=== PATIENT | female | born 1950 | race African-American/Black ===

== ENCOUNTER 2018-02-05 15:04 | Emergency (ER) | payer BC ==
[2018-02-05 15:27] VITALS: TEMP 98.6; BMI 24.1
--- NOTE | 2018-02-05 15:40 | PDOC ---
History of Present Illness - General Chief Complaint: Headache Stated Complaint: WEAKNESS Time Seen by Provider: 02/05/18 15:40 History Source: Patient Exam Limitations: No Limitations - History of Present Illness Initial Comments: 02/05/18 16:13 67 year old female with PMH discoid lupus presents to ED for headache since . She states her headache is located to her bilateral temples, feels "band- like", gradually progressed, non-radiating, currently 5/10. Admits to epigastric pain, nausea and one episode of vomiting today, denies hematemesis. Denies photophobia, phonophobia, fever, weakness, numbness, visual changes, chest pain, shortness of breath,diarrhea, blood in stools. She states she took Tylenol for the headache yesterday with no relief of symptoms. Past History - Past Medical History Allergies/Adverse Reactions: Allergies Allergy/AdvReac Type Severity Reaction Status Date / Time No Known Allergies Allergy Verified 02/05/18 15:26 Home Medications: Ambulatory Orders NK [No Known Home Medication] 02/05/18 COPD: No - Suicide/Smoking/Psychosocial Hx Smoking History: Current every day smoker Number of Cigarettes Smoked Daily: 20 Information on smoking cessation initiated: No Review of Systems - Review of Systems Able to Perform ROS?: Yes Comments:: 02/05/18 16:16 General: denies fever, chills, night sweats, generalized weakness. HEENT: denies sore throat, rhinorrhea, ear pain. Heart: admits to lightheadedness. denies chest pain, palpitations, syncope, lower extremity swelling. Respiratory: denies shortness of breath, cough, sputum production, hematemesis. Abdomen: admits to epigastric pain, nausea, vomiting. denies diarrhea, constipation, blood in stool. : denies dysuria, urinary frequency, hematuria. Musculoskeletal: denies joint pain, muscle pain, joint swelling. Neurological: admits to headache. denies dizziness, numbness, tingling. Skin: denies rash, laceration, abrasion. *Physical Exam - Vital Signs Last Vital Signs Temp Pulse Resp BP Pulse Ox 98.6 F 69 18 121/53 100 02/05/18 15:24 02/05/18 15:24 02/05/18 15:24 02/05/18 15:24 02/05/18 15:24 - Physical Exam Comments: 02/05/18 16:16 Appearance: comfortable. sitting up in bed. HEENT: head is normocephalic, atraumatic. EOMI. PERRLA. Neck: supple. Full ROM. Heart: regular rhythm. no murmurs, rubs or gallops. Lungs: clear to auscultation bilaterally. no crackles, rhonchi or wheezing. no stridor. Abdomen: soft, flat, nontender. normal bowel sounds. no rebound, guarding, masses. Back: no CVA tenderness. Extremities: Peripheral pulses intact. No lower extremity edema. Neurological: Alert. Oriented x3. CN 2-12 intact. 5/5 strength all extremities. Full sensation all extremities and bilateral face. Romberg negative. Gait normal. Finger to nose normal. Heart Score/ECG Review - ECG Impressions Comment:: 02/05/18 17:11 Inferior STEMI with reciprocal changes. ED Treatment Course - LABORATORY CBC & Chemistry Diagram: 02/05/18 17:00 02/05/18 17:00 Medical Decision Making - Medical Decision Making 02/05/18 17:02 67 year old female with PMH discoid lupus complaining of gradual onset frontal headache x3 days associated with epigastric pain and one episode of vomiting. Denies weakness, numbness, visual changes, chest pain, SOB. EKG - inferior CA with reciprocal changes. Pt will be transferred to [facility] for cardiac catheterization. I spoke with the patient and her daughter about the plan of care, and they agree to have her transferred. Aspirin, heparin and plavix given here. Pt is currently chest pain free, no shortness of breath, no palpitations. Vitals stable. *DC/Admit/Observation/Transfer Diagnosis at time of Disposition: Myocardial infarction Qualifiers: Myocardial infarction type: unspecified Involved coronary artery: other inferior wall coronary artery Qualified Code(s): I21.19 - ST elevation (STEMI) myocardial infarction involving other coronary artery of inferior wall - Discharge Dispostion Disposition: TRANSFER ACUTE CARE/OTHER HOSP Condition at time of disposition: Guarded Decision to Admit order: No - Referrals - Patient Instructions - Post Discharge Activity - Transfer to Acute Care Facility Receiving Facility: [facility] Accepting Physician:: Dr. Stewart
--- NOTE | 2018-02-05 16:31 | PDOC ---
Attending Attestation - Resident Resident Name: Gm Farryla - ED Attending Attestation I have performed the following: I have examined & evaluated the patient, The case was reviewed & discussed with the resident, I agree w/resident's findings & plan, Exceptions are as noted - HPI HPI: 02/05/18 16:29 67y F hx of discoid lupus presents with gradual constant, 5/10 headache, started on wednesday associated with mild epigastric pain. denies any chest pain , , back pain, sob, moreno, diaphorseis, n/v, diarrhea, melena, bpr. on exam pt is well appaering, in no distress card: rrr, no mrg pulm: cta b/l abd: soft nontender genreal: no acute distress, well appearing ddx: tensino headache, gastritis will obtain basic labs, ekg to screen for acs fluids/reglan for headache will aressess - Physicial Exam PE: 02/05/18 17:38 see above - Critical Care Time Total Critical Care Time: 35 Critical Care Statement: The care of this patient involved high complexity decision making to prevent further life threatening deterioration of the patient 's condition and/or to evaluate & treat vital organ system(s) failure or risk of failure. - Medical Decision Making 02/05/18 17:36 pts ekg noted for inferior STEMI with Q waves initiating STEMI transfer protocol to [facility] no active current chest pain, but does endorse mild epigastric discomfort [facility] transfer center called for transfer - discussed with Dr. Carter (card fellow) and dr Stewart (Interventional cardiology ) ekg reviewed by them - agree Inferior Stemi accepted gfor transfer will transfer with heparin bolus, given ASA and plavix 600mg 02/05/18 17:50 Was notified by [facility] that the acceptance was cancelled. I called back the transfer center to clarify - they said they wlil clarify and call me back 02/05/18 17:55 Discussed with transfer center - they are taking the transfer - will check to see if going to bed vs ED. 02/05/18 18:05 They found a bed for her. Departing with EMS Pt stlil well appearing in n odistress, denies chest pain. The patient was seen and examined to determine medical stability. The patient is MEDICALLY STABLE at this time. Labs, EKG, radiological studies were ordered to expedite the patient's care. I certify that I have discussed with the patient and/or his regional sales representative the following risks and benefits of the proposed transfer. Risks include worsening of patients condition during transport,auto accident, or permanent disability. Benefits include receiving specialized care not available at this facility. I certify that, based on the information available at this time, the medical benefits reasonably expected from the provision of appropriate medical treatment at the receiving facility outweigh the increased risk to the patient. I believe the patient/relative/guardian understands what I have explained and answered. The patient will be transferred to the service of Dr. Stewart at [facility] 02/07/18 07:49 Heart Score/ECG Review - ECG Impressions Comment:: 02/05/18 17:38 Normal sinus rhythm Rate of 69 BRITTNY in inferior leads with Q waves in III,aVF biphasic T waves in V5 and V6 no prior ekg for comparison
[2018-02-05] MEDS ORDERED: SODIUM CHLORIDE 1,000 ML IV ONE (16:34)
[2018-02-05] MEDS ORDERED: METOCLOPRAMIDE HCL INJECTION 10 MG/2 ML VIAL IVPUSH ONE (16:34)
[2018-02-05] MEDS ORDERED: METOCLOPRAMIDE HCL INJECTION 10 MG/2 ML VIAL ONE (16:51)
[2018-02-05 17:03] LABS: EOS % 0.1 % (0-4.5); HEMATOCRIT 35.2 % (32.4-45.2); HEMOGLOBIN 11.3 GM/dL (10.7-15.3); LYMPH % 11.6 % (8-40); MCH 24.5 pg (25.7-33.7); MCHC 32.1 g/dl (32.0-36.0); MEAN CELL VOLUME 76.3 fl (80-96); MEAN PLT VOLUME 9.5 fl (7.5-11.1); MONO % 11.6 % (3.8-10.2); NEUT % 76.7 % (42.8-82.8); PLATELET COUNT 199 K/MM3 (134-434); RBC 4.62 M/mm3 (3.60-5.2); RDW 17.9 % (11.6-15.6); WHITE BLOOD COUNT 7.9 K/mm3 (4.0-10.0)
[2018-02-05] MEDS ORDERED: ASPIRIN 81 MG CHEWABLE TABLETS PO ONE (17:07)
[2018-02-05] MEDS ORDERED: HEPARIN NA (PORCINE) 5,000 UNITS/ML 1ML VIAL IVPUSH PRN (17:13)
[2018-02-05] MEDS ORDERED: CLOPIDOGREL BISULFATE 300 MG TABLET PO ONE (17:16)
[2018-02-05] MEDS ORDERED: HEPARIN NA (PORCINE) 5,000 UNITS/ML 1ML VIAL ONE (17:23)
[2018-02-05] MEDS ORDERED: ASPIRIN 81 MG CHEWABLE TABLETS ONE (17:23)
[2018-02-05] MEDS ORDERED: CLOPIDOGREL BISULFATE 300 MG TABLET ONE (17:23)
[2018-02-05 17:38] VITALS: BP 144/74; PULSE 80
[2018-02-05 17:47] LABS: ALBUMIN 3.6 g/dl (3.4-5.0); ANION GAP 8 (8-16); BLOOD UREA NITROGEN 10 mg/dL (7-18); CALCIUM 9.5 mg/dL (8.5-10.1); CHLORIDE 103 mmol/L (98-107); CO2 29 mmol/L (21-32); GLUCOSE,RANDOM 112 mg/dL (74-106); POTASSIUM 3.9 mmol/L (3.5-5.1); SGOT/AST 120 U/L (15-37); SGPT/ALT 33 U/L (12-78); SODIUM 140 mmol/L (136-145)
[2018-02-05 17:48] LABS: ALK PHOS 87 U/L (45-117); BILIRUBIN,TOTAL 0.4 mg/dL (0.2-1.0); TOT PROT 7.5 g/dl (6.4-8.2)
[2018-02-05 17:54] LABS: LIPASE 562 U/L (73-393)
[2018-02-05 18:05] LABS: ANISOCYTOSIS 1+; PLATELET ESTIMATE ADEQUATE
--- NOTE | 2018-02-07 10:30 | EKG ---
Test Reason : Blood Pressure : / mmHG Vent. Rate : 069 BPM Atrial Rate : 069 BPM P-R Int : 126 ms QRS Dur : 090 ms QT Int : 416 ms P-R-T Axes : 062 028 077 degrees QTc Int : 445 ms SINUS RHYTHM WITH PREMATURE SUPRAVENTRICULAR COMPLEXES POSSIBLE LEFT ATRIAL ENLARGEMENT INFEROLATERAL INJURY PATTERN , POSSIBLY ACUTE ANTERIOR INFARCT , AGE UNDETERMINED T WAVE ABNORMALITY, CONSIDER LATERAL ISCHEMIA ACUTE ND / STEMI ABNORMAL ECG NO PREVIOUS ECGS AVAILABLE Confirmed by ARTURO JESUS MD ([id number]) on 02/07/2018 10:30:28 AM Referred By: Confirmed By:ARTURO JESUS MD
== END 2018-02-05 18:05 | disposition short-term general hospital (02) ==
LOC: JER 15:04
PROC: 3E0337Z Introduction of Electrolytic and Water Balance Substance into Peripheral Vein, Percutaneous Approach (ICD-10-PCS; principal; 2018-02-05)
PROC: 3E033GC Introduction of Other Therapeutic Substance into Peripheral Vein, Percutaneous Approach (ICD-10-PCS; 2018-02-05)
PROC: 3E033GC Introduction of Other Therapeutic Substance into Peripheral Vein, Percutaneous Approach (ICD-10-PCS; 2018-02-05)
DX: I21.19 ST elevation (STEMI) myocardial infarction involving other coronary artery of inferior wall (principal); F17.210 Nicotine dependence, cigarettes, uncomplicated
CPT/HCPCS: 36415; 71045-TC-FY; 80053; 82550; 82553; 83690; 84484; 85025; 93005; 93010; 99283-25; J1644; J7030

== ENCOUNTER 2018-02-18 13:36 | Inpatient (IN) | payer OTHER, BC ==
--- NOTE | 2018-02-18 14:04 | PDOC ---
History of Present Illness - General History Source: Patient - History of Present Illness Initial Comments: 02/18/18 15:12 67 year old female with PMH of recent SC (02/05)) presents to our ED c/o nausea , "queasiness" and decreased appetite. Patient states the symptoms have been present intermittently for 1 month but became increasingly severe over the last 3-4 days prompting her visit to the ED. Patient was evaluated by her mobility scooter repairer, -- today and instructed to come to the ED for further evaluation. Denies any recent weight loss. Notes 1/2 ppd > years. ROS positive for black tarry stools increased BM, patient has 3-4 bowel movement daily, normal is 1 BM. NKDA Surgical: s/p cardiac stent Social: former smoker, denies other toxic habits PMD: None - will refer to IM resident clinic As per EMR patient was evaluated in our ED on 02/05 at which time she was noted to have inferior STEMI. Patient transferred to [facility]. <Eva Du - Last Filed: 02/18/18 23:18> <Jesus Estrella - Last Filed: 02/20/18 16:34> - General Chief Complaint: Nausea/Vomiting Stated Complaint: WEAKNESS Time Seen by Provider: 02/18/18 14:00 Past History - Past Medical History Cardiac Disorders: Yes (SC stent) COPD: No - Surgical History Cardiac Surgery: Yes (stent 01/2018) - Suicide/Smoking/Psychosocial Hx Smoking History: Former smoker Have you smoked in the past 12 months: No Number of Cigarettes Smoked Daily: 20 Information on smoking cessation initiated: No Hx Alcohol Use: No Drug/Substance Use Hx: No <Eva Du - Last Filed: 02/18/18 23:18> <Jesus Estrella - Last Filed: 02/20/18 16:34> - Past Medical History Allergies/Adverse Reactions: Allergies Allergy/AdvReac Type Severity Reaction Status Date / Time No Known Allergies Allergy Verified 02/18/18 13:50 Home Medications: Ambulatory Orders Aspirin [ASA -] 81 mg PO DAILY 02/18/18 Atorvastatin Ca [Lipitor] 80 mg PO HS 02/18/18 Clopidogrel Bisulfate [Plavix -] 75 mg PO DAILY 02/18/18 Metoprolol Succinate [Toprol Xl] 25 mg PO DAILY 02/18/18 Review of Systems - Review of Systems Constitutional: Yes: Weakness. No: Chills, Fever Respiratory: No: Cough, Orthopnea Cardiac (ROS): Yes: Lightheadedness. No: Chest Pain, Palpitations, Syncope, Chest Tightness ABD/GI: Yes: Diarrhea, Nausea, Tarry Stools : No: Burning, Dysuria <FlorianMayra munroeica - Last Filed: 02/18/18 23:18> *Physical Exam - Vital Signs Last Vital Signs Temp Pulse Resp BP Pulse Ox 99.4 F 96 H 18 131/71 97 02/18/18 13:51 02/18/18 13:51 02/18/18 13:51 02/18/18 13:51 02/18/18 13:51 - Physical Exam General Appearance: Yes: Nourished, Thin Neck: positive: Trachea midline, Supple Respiratory/Chest: positive: Lungs Clear, Normal Breath Sounds Cardiovascular: positive: S1, S2 Gastrointestinal/Abdominal: negative: Tender, Soft, Guarding, Rebound Musculoskeletal: negative: CVA Tenderness (R), CVA Tenderness (L) Extremity: positive: Normal Capillary Refill, Normal Inspection Integumentary: positive: Dry, Warm Neurologic: positive: Fully Oriented, Alert <FlorianEva - Last Filed: 02/18/18 23:18> - Vital Signs Last Vital Signs Temp Pulse Resp BP Pulse Ox 98.9 F 88 20 144/72 95 02/20/18 14:00 02/20/18 14:00 02/20/18 14:00 02/20/18 14:00 02/20/18 09:00 <Jesus Estrella - Last Filed: 02/20/18 16:34> ED Treatment Course - LABORATORY CBC & Chemistry Diagram: 02/18/18 15:50 02/18/18 15:00 <FlorianEva - Last Filed: 02/18/18 23:18> - LABORATORY CBC & Chemistry Diagram: 02/20/18 06:05 02/19/18 06:00 - ADDITIONAL ORDERS Additional order review: 02/18/18 02/18/18 15:50 15:00 RBC 2.25 L Cancelled MCV 76.1 L Cancelled MCHC 32.0 Cancelled RDW 17.6 H Cancelled MPV 9.2 Cancelled Neutrophils % 79.5 Cancelled Lymphocytes % 8.4 D Cancelled Monocytes % 11.8 H Cancelled Eosinophils % 0.0 D Cancelled Basophils % 0.3 D Cancelled - Medications Given in the ED: ED Medications Discontinued Medications Generic Name Dose Route Start Last Admin Trade Name Nitesh PRN Reason Stop Dose Admin Acetaminophen 1,000 mg 02/18/18 18:02 02/18/18 19:30 Ofirmev Injection - IVPB 02/18/18 18:03 1,000 mg ONCE ONE Administration Bisacodyl 20 mg 02/20/18 15:00 02/20/18 15:15 Dulcolax - PO 02/20/18 15:01 20 mg ONCE ONE Administration Sodium Chloride 500 mls @ 500 mls/hr 02/18/18 14:42 02/18/18 15:07 Normal Saline - IV 02/18/18 15:41 500 mls/hr ASDIR STA Administration Ondansetron HCl 4 mg 02/18/18 14:42 02/18/18 15:08 Zofran Injection IVPB 02/18/18 14:43 Not Given ONCE ONE Pantoprazole Sodium 40 mg 02/18/18 15:29 02/18/18 16:31 Protonix Iv IVPUSH 02/18/18 15:30 40 mg ONCE ONE Administration <Jesus Estrella - Last Filed: 02/20/18 16:34> Medical Decision Making - Medical Decision Making 02/18/18 15:16 67 year old female presents w/nausea + black tarry stool. Recent h/o SC. Frontal diagnosis: repeat SC, PUD, gastritis, malignancy. Will obtain basic labs, Lipase. EKG. Reassess. 02/18/18 16:20 FOBT (+) Troponin 0.21 likely 2/2 to demand ischemia (previous Troponin 13 on 02/05) 02/18/18 17:41 Hb 5.1 Case d/w Dr. Pierce. Agrees w/POC. Requests CT Abdomen/Pelvis (can be done as inpatient) to r/o malignancy. Will see patient tomorrow in the a.m.; EGD pending Patient and patient's family counseled on plan of care; consented to transfusion. 2 units PRBC pending 02/18/18 18:46 Hospitalist service paged for admission. 02/18/18 18:47 02/18/18 18:54 Case d/w Dr. Navarro (hospitalist service) patient accepted for inpatient admission <Eva Du - Last Filed: 02/18/18 23:18> *DC/Admit/Observation/Transfer - Discharge Dispostion Decision to Admit order: Yes <Eva Du - Last Filed: 02/18/18 23:18> <Jesus Estrella - Last Filed: 02/20/18 16:34> Diagnosis at time of Disposition: Low hemoglobin GI bleed Qualifiers: GI bleed type/associated pathology: melena Qualified Code(s): K92.1 - Melena - Discharge Dispostion Condition at time of disposition: Fair
--- NOTE | 2018-02-18 14:38 | PDOC ---
Attending Attestation - Resident Resident Name: Eva Du - ED Attending Attestation I have performed the following: I have examined & evaluated the patient, The case was reviewed & discussed with the resident, I agree w/resident's findings & plan, Exceptions are as noted - HPI HPI: 02/18/18 14:38 67y F hx oCAD s/p stent 2 weeks ago (on plavix, asa), Lupus, presents with complaint of n/v. Pt was orginally asypmtomatic, went to her cardiology follow up w appointment and then suddenly felt dizzy and nauseus. Vomited 2x that was clear with food. Pt also endorses a couple episodes of dark stool as well. pt denies any sob, diaphoresis, cp, sob, back pain, abd pain, headache, dizziness. Pt states she currently feels better. +smoking history. GENERAL: The patient is awake, alert, and fully oriented, Nontoxic - in no acute distress. HEAD: Normocephalic, atraumatic. EYES: extraocular movements intact, sclera anicteric, conjunctiva clear. ENT: Normal voice, Moist mucous membranes. NECK: Normal range of motion, supple LUNGS: Breath sounds equal, clear to auscultation bilaterally. No wheezes, no rhonchi, no rales. HEART: Regular rate and rhythm, normal S1 and S2 without murmur, rub or gallop. ABDOMEN: Soft, nontender, No guarding, no rebound. . No CVA tenderness EXTREMITIES: Normal range of motion, no edema. NEUROLOGICAL: No facial assymetry, Normal speech, PSYCH: Normal mood, normal affect. SKIN: hypopigmented lesions on face ddx: gastroenteritis, acs, gib will ck labs, guaiac, ekg, trops fluids, zofran will reassess - Physicial Exam PE: 02/20/18 16:29 see abve - Critical Care Time Total Critical Care Time: 40 Critical Care Statement: The care of this patient involved high complexity decision making to prevent further life threatening deterioration of the patient 's condition and/or to evaluate & treat vital organ system(s) failure or risk of failure. - Medical Decision Making 02/18/18 18:36 pts labs noted for a 6pt drop in her hbg over the past 2 weeks with her dark stool (+guaiac) will admit for further management of GIB case dw GI wlil start protonix on th ept Heart Score/ECG Review - ECG Impressions Comment:: 02/18/18 15:09 Twelve-lead EKG was performed and reviewed by me. There is normal sinus rhythm with a rate of 100 Inverted T waves in the inferior leads and lateral leads When compared with prior EKG her ST elevation in the inferior leads have since resolved
[2018-02-18] MEDS ORDERED: SODIUM CHLORIDE 500 ML IV STA (14:42)
[2018-02-18] MEDS ORDERED: ONDANSETRON 4 MG/2 ML VIAL IVPB ONE (14:42)
[2018-02-18] MEDS ORDERED: ONDANSETRON 4 MG/2 ML VIAL ONE (14:56)
[2018-02-18] MEDS ORDERED: PANTOPRAZOLE SODIUM 40 MG VIAL IVPUSH ONE (15:29)
[2018-02-18 15:41] LABS: ALBUMIN 2.4 g/dl (3.4-5.0); ANION GAP 8 (8-16); BILIRUBIN,TOTAL 0.4 mg/dL (0.2-1.0); BLOOD UREA NITROGEN 19 mg/dL (7-18); CALCIUM 8.2 mg/dL (8.5-10.1); CHLORIDE 105 mmol/L (98-107); CO2 26 mmol/L (21-32); CREATININE 0.8 mg/dL (0.55-1.02); GLUCOSE,RANDOM 116 mg/dL (74-106); POTASSIUM 3.9 mmol/L (3.5-5.1); SGOT/AST 76 U/L (15-37); SGPT/ALT 67 U/L (12-78); SODIUM 139 mmol/L (136-145); TOT PROT 6.1 g/dl (6.4-8.2)
[2018-02-18 15:45] LABS: ALK PHOS 125 U/L (45-117)
[2018-02-18] MEDS ORDERED: PANTOPRAZOLE SODIUM 40 MG/100 ML BAG IVPB ONE ×2 (16:36→19:43)
[2018-02-18 17:05] LABS: BASO % 0.3 % (0-2.0); LYMPH % 8.4 % (8-40); MCH 24.4 pg (25.7-33.7); MEAN CELL VOLUME 76.1 fl (80-96); MEAN PLT VOLUME 9.2 fl (7.5-11.1); MONO % 11.8 % (3.8-10.2); NEUT % 79.5 % (42.8-82.8); PLATELET COUNT 308 K/MM3 (134-434); RBC 2.25 M/mm3 (3.60-5.2); RDW 17.6 % (11.6-15.6); WHITE BLOOD COUNT 8.2 K/mm3 (4.0-10.0)
[2018-02-18 17:22] LABS: HEMATOCRIT 17.1 % (32.4-45.2); HEMOGLOBIN 5.5 GM/dL (10.7-15.3)
[2018-02-18] MEDS ORDERED: ACETAMINOPHEN 1000 MG/100 ML VIAL (NON FORMULARY) IVPB ONE (18:02)
[2018-02-18 18:12] LABS: INR 1.23 (0.83-1.09); PROTHROMBIN TIME (PATIENT) 13.9 SEC (9.7-13.0)
[2018-02-18] MEDS: PANTOPRAZOLE SODIUM 80 MG in SODIUM CHLORIDE 100 ML IVPB SCH (19:30)
[2018-02-18] MEDS ORDERED: ACETAMINOPHEN INJECTION 100 ML IVPB ONE (19:43)
--- NOTE | 2018-02-18 20:59 | PN ---
Teaching Attending Note Name of Resident: Sorin Navarro ATTENDING PHYSICIAN STATEMENT I saw and evaluated the patient. I reviewed the resident's note and discussed the case with the resident. I agree with the resident's findings and plan as documented. SUBJECTIVE: Patient is a 67 year old woman with history of acute NM (stent 2 weeks ago) and SLE, who presents with complaint of nausea and vomiting. She went to her policy manager for follow up and then suddenly felt dizzy and nauseous. Vomited twice - clear with food. She had a couple episodes of dark stool as well. Denies any sob, diaphoresis, chestpain, abdominal pain or headache. She has been on Asprin and Plavix since her acute NM. Her hematocrit on February 05, 2018 was 35%, though she also had an MCV of 76 then. Denies use of NSAIDS or history of PUD. Got IV heparin 2 weeks ago as part of ACS management. Has avoided doctors most of her life - only seen a clinical support tech. Had left hand surgery. OBJECTIVE: Alert and in no acute distress Vital Signs Period Temp Pulse Resp BP Sys/Blankenship Pulse Ox Last 24 Hr 98.4 F-99.4 F 96-106 18-20 131-149/71-76 96-99 HEENT: No Jaundice, eye redness or discharge, PERRLA, EOMI. Normocephalic, atraumatic. Upper lip deformity with hyperpigmented lesions and vitiligo. External ears are normal and hearing is grossly intact. No nasal discharge. Neck: Supple, nontender. No palpable adenopathy or thyromegaly. No JVD Chest: Good effort. Clear to auscultation and percussion. Heart: Regular. No S3, rub or murmur Abdomen: Not distended, soft, nontender and no HSM. No rebound or guarding. Normoactive bowel sounds. Ext: Peripheral pulses intact. No leg edema. Skin: Warm and dry. No petechiae, rash or ecchymosis. Neuro: Alert. Apprehensive and withdrawn. Oriented x3. CN 2-12 grossly intact. Sensation grossly intact in all four extremities and DTR are symmetric. Current Medications Generic Name Dose Route Start Last Admin Trade Name Freq PRN Reason Stop Dose Admin Aspirin 81 mg 02/19/18 10:00 Asa - PO DAILY [facility] Atorvastatin Calcium 80 mg 02/18/18 22:00 Lipitor - PO HS SADAF Clopidogrel Bisulfate 75 mg 02/19/18 10:00 Plavix - PO DAILY SADAF Pantoprazole Sodium 80 mg/ 100 mls @ 10 mls/hr 02/18/18 18:00 02/18/18 19:30 Sodium Chloride IVPB 10 mls/hr Q10H SADAF Administration 8 MG/HR Metoprolol Succinate 25 mg 02/19/18 10:00 Toprol Xl - PO DAILY [facility] Home Medications Medication Instructions Recorded Aspirin [ASA -] 81 mg PO DAILY 02/18/18 Atorvastatin Ca [Lipitor] 80 mg PO HS 02/18/18 Clopidogrel Bisulfate [Plavix -] 75 mg PO DAILY 02/18/18 Metoprolol Succinate [Toprol Xl] 25 mg PO DAILY 02/18/18 Abnormal Lab Results 02/18/18 02/18/18 02/18/18 15:00 15:50 17:40 RBC 2.25 L Hgb 5.5 L* Hct 17.1 L D MCV 76.1 L MCH 24.4 L RDW 17.6 H Monocytes % 11.8 H Nucleated RBC % 1 H PT with INR 13.90 H INR 1.23 H BUN 19 H Random Glucose 116 H Calcium 8.2 L AST 76 H Alkaline Phosphatase 125 H D Troponin I 0.21 H Total Protein 6.1 L Albumin 2.4 L Crossmatch 02/18/18 17:40 RBC Hgb Hct MCV MCH RDW Monocytes % Nucleated RBC % PT with INR INR BUN Random Glucose Calcium AST Alkaline Phosphatase Troponin I Total Protein Albumin Crossmatch See Detail ASSESSMENT AND PLAN: 1. GI bleeding - Noted to have guaiac positive melena stool in the ER. Got IV protonix and zofran and now getting [address] scan of abd/pelvis pending. GI consulted. Location of bleeding unclear. Both EGD and colonoscopy will be revealing - microcytosis was present before recent plavix/aspirin therapy. 2. CAD/Recent Acute NM - Will continue Plavix and Aspirin pending Cardiology consult. Elevated troponin likely a residue from her recent NM. Will however trend her troponin and rule out a new acute NM. EKG shows t wave inversion in the inferior and lateral leads. 3. DVT prophylaxis - SCD, TEDs 4. Advance directives - Full code
--- NOTE | 2018-02-18 21:35 | HP ---
CHIEF COMPLAINT: dark stools PCP: Dr. Randolph litigation partner HISTORY OF PRESENT ILLNESS: Pt is a 67 yo F with PMH SLE and recent inf HI stent placed a Dusty on the of last month who presents to ED with complaint of dark stools since her procedure. Stools have increased from once daily to 3-4 BM per day. She also reports fatigue, decreased appetite, lightheadedness when standing from seated position or when bending over. Today, she went to see her litigation partner, who performed some lab work, which was pending when she came to ED. No other symptoms. ER course was notable for: (1) Hb 5.5, MCV 76, MCH 24, Trop 0.21, AST 76, ALP 125, FOBT pos (2) CXR, large heart, mild congestion (3) per sign-out, ED spoke with GI who reportedly recommended CTAP with and without contrast Recent Travel: PAST MEDICAL HISTORY: PAST SURGICAL HISTORY: Social History: Smoking: Alcohol: Drugs: Family History: Allergies No Known Allergies Allergy (Verified 02/18/18 13:50) HOME MEDICATIONS: Home Medications Medication Instructions Recorded Aspirin [ASA -] 81 mg PO DAILY 02/18/18 Atorvastatin Ca [Lipitor] 80 mg PO HS 02/18/18 Clopidogrel Bisulfate [Plavix -] 75 mg PO DAILY 02/18/18 Metoprolol Succinate [Toprol Xl] 25 mg PO DAILY 02/18/18 REVIEW OF SYSTEMS CONSTITUTIONAL: Absent: fever, chills, diaphoresis, generalized weakness, malaise, loss of appetite, weight change HEENT: Absent: rhinorrhea, nasal congestion, throat pain, throat swelling, difficulty swallowing, mouth swelling, ear pain, eye pain, visual changes CARDIOVASCULAR: Absent: chest pain, syncope, palpitations, irregular heart rate, lightheadedness , peripheral edema RESPIRATORY: Absent: cough, shortness of breath, dyspnea with exertion, orthopnea, wheezing, stridor, hemoptysis GASTROINTESTINAL: Absent: abdominal pain, abdominal distension, nausea, vomiting, diarrhea, constipation, melena, hematochezia GENITOURINARY: Absent: dysuria, frequency, urgency, hesitancy, hematuria, flank pain, genital pain MUSCULOSKELETAL: Absent: myalgia, arthralgia, joint swelling, back pain, neck pain SKIN: Absent: rash, itching, pallor HEMATOLOGIC/IMMUNOLOGIC: Absent: easy bleeding, easy bruising, lymphadenopathy, frequent infections ENDOCRINE: Absent: unexplained weight gain, unexplained weight loss, heat intolerance, cold intolerance NEUROLOGIC: Absent: headache, focal weakness or paresthesias, dizziness, unsteady gait, seizure, mental status changes, bladder or bowel incontinence PSYCHIATRIC: Absent: anxiety, depression, suicidal or homicidal ideation, hallucinations. PHYSICAL EXAMINATION Vital Signs - 24 hr 02/18/18 02/18/18 02/18/18 13:51 17:30 19:08 Temperature 99.4 F 98.4 F Pulse Rate 96 H Pulse Rate [ 106 H Apical] Respiratory 18 20 Rate Blood Pressure 131/71 Blood Pressure 149/76 [Left Arm] O2 Sat by Pulse 97 99 96 Oximetry (%) GENERAL: Awake, alert, and fully oriented, in no acute distress. HEAD: Normal with no signs of trauma. EYES: Pupils equal, round and reactive to light, extraocular movements intact, sclera anicteric, conjunctiva clear. No lid lag. EARS, NOSE, THROAT: Ears normal, nares patent, oropharynx clear without exudates. Moist mucous membranes. NECK: Normal range of motion, supple without lymphadenopathy, JVD, or masses. LUNGS: Breath sounds equal, clear to auscultation bilaterally. No wheezes, and no crackles. No accessory muscle use. HEART: Regular rate and rhythm, normal S1 and S2 without murmur, rub or gallop. ABDOMEN: Soft, nontender, not distended, normoactive bowel sounds, no guarding, no rebound, no masses. No hepatomegaly or splenomegaly. MUSCULOSKELETAL: Normal range of motion at all joints. No bony deformities or tenderness. No CVA tenderness. UPPER EXTREMITIES: 2+ pulses, warm, well-perfused. No cyanosis. No clubbing. No peripheral edema. LOWER EXTREMITIES: 2+ pulses, warm, well-perfused. No calf tenderness. No peripheral edema. NEUROLOGICAL: Cranial nerves II-XII intact. Normal speech. Normal gait. PSYCHIATRIC: Cooperative. Good eye contact. Appropriate mood and affect. SKIN: Warm, dry, normal turgor, no rashes or lesions noted, normal capillary refill. Laboratory Results - last 24 hr 02/18/18 02/18/18 02/18/18 14:25 15:00 15:00 WBC Cancelled Corrected WBC (auto) Cancelled RBC Cancelled Hgb Cancelled Hct Cancelled MCV Cancelled MCH Cancelled MCHC Cancelled RDW Cancelled Plt Count Cancelled MPV Cancelled Absolute Neuts (auto) Cancelled Absolute Lymphs (auto) Cancelled Absolute Monos (auto) Cancelled Absolute Eos (auto) Cancelled Absolute Basos (auto) Cancelled Add Manual Diff Cancelled Neutrophils % Cancelled Lymphocytes % Cancelled Monocytes % Cancelled Eosinophils % Cancelled Basophils % Cancelled Nucleated RBC % Cancelled Platelet Estimate Cancelled Platelet Comment Cancelled Normal RBC Morphology Cancelled PT with INR INR Sodium 139 Potassium 3.9 Chloride 105 Carbon Dioxide 26 Anion Gap 8 BUN 19 H Creatinine 0.8 Creat Clearance w eGFR > 60 Random Glucose 116 H Calcium 8.2 L Total Bilirubin 0.4 AST 76 H ALT 67 Alkaline Phosphatase 125 H D Creatine Kinase 47 Troponin I 0.21 H Total Protein 6.1 L Albumin 2.4 L Lipase Stool Occult Blood Positive Blood Type Antibody Screen Crossmatch 02/18/18 02/18/18 02/18/18 15:00 15:50 17:40 WBC 8.2 Corrected WBC (auto) RBC 2.25 L Hgb 5.5 L* Hct 17.1 L D MCV 76.1 L MCH 24.4 L MCHC 32.0 RDW 17.6 H Plt Count 308 D MPV 9.2 Absolute Neuts (auto) 6.5 Absolute Lymphs (auto) Absolute Monos (auto) Absolute Eos (auto) Absolute Basos (auto) Add Manual Diff Neutrophils % 79.5 Lymphocytes % 8.4 D Monocytes % 11.8 H Eosinophils % 0.0 D Basophils % 0.3 D Nucleated RBC % 1 H Platelet Estimate Platelet Comment Normal RBC Morphology PT with INR 13.90 H INR 1.23 H Sodium Potassium Chloride Carbon Dioxide Anion Gap BUN Creatinine Creat Clearance w eGFR Random Glucose Calcium Total Bilirubin AST ALT Alkaline Phosphatase Creatine Kinase Troponin I Total Protein Albumin Lipase 141 Stool Occult Blood Blood Type Antibody Screen Crossmatch 02/18/18 17:40 WBC Corrected WBC (auto) RBC Hgb Hct MCV MCH MCHC RDW Plt Count MPV Absolute Neuts (auto) Absolute Lymphs (auto) Absolute Monos (auto) Absolute Eos (auto) Absolute Basos (auto) Add Manual Diff Neutrophils % Lymphocytes % Monocytes % Eosinophils % Basophils % Nucleated RBC % Platelet Estimate Platelet Comment Normal RBC Morphology PT with INR INR Sodium Potassium Chloride Carbon Dioxide Anion Gap BUN Creatinine Creat Clearance w eGFR Random Glucose Calcium Total Bilirubin AST ALT Alkaline Phosphatase Creatine Kinase Troponin I Total Protein Albumin Lipase Stool Occult Blood Blood Type O POSITIVE Antibody Screen Negative Crossmatch See Detail ASSESSMENT/PLAN: Pt is a 67 yo F with PMH SLE and recent inf HI stent placed a Dusty on the of last month who presents to ED with complaint of dark stools since her procedure. Admitted for GIB. #GIB -likely exacerbated by AC following cardiac procedure -FOBT pos -Hb 6.8 -PRBCs -GI -NPO -Protonix #CAD -Recent cath with stenting with drug-eluting stent -EKG changes consistent with her recent inf wall HI -Cardio consult -continue ASA & Plavix in light of recent stent and risk of in-stent restenosis #PPx -SCDs -on plavix #Dispo -admit for GIB Sorin Navarro MD PGY-2 IM Visit type - Emergency Visit Emergency Visit: Yes ED Registration Date: 02/18/18 Care time: The patient presented to the Emergency Department on the above date and was hospitalized for further evaluation of their emergent condition. - New Patient This patient is new to me today: Yes Date on this admission: 02/26/18 - Critical Care Critical Care patient: No Hospitalist Screening - Colonoscopy Questionnaire Colonoscopy Questionnaire: Colonoscopy Questionnaire - Patient: 50 - 75 years old and never had a screening colonoscopy: Unknown History of colon or rectal polyps, or CA: Unknown History of IBD, Crohn's disease or UC: Unknown History of abdominal radiation therapy as a child: Unknown - Relative: 1 with colon or rectal CA, or polyps at age 60 or younger: Unknown Colon or rectal CA diagnosed at age 45 or younger: Unknown Multiple relatives with colon or rectal CA: Unknown - Outcome: Screening Result: Negative Screen
[2018-02-18] MEDS ORDERED: ATORVASTATIN CA 80 MG TABLET (FP) ONE (22:39)
[2018-02-18 22:51] VITALS: BMI 21.3
[2018-02-19] MEDS: ATORVASTATIN CA 80 MG TABLET (FP) PO SCH ×2 (00:07→21:34)
[2018-02-19] MEDS: PANTOPRAZOLE SODIUM 80 MG in SODIUM CHLORIDE 100 ML IVPB SCH ×4 (03:59→22:50)
[2018-02-19 07:56] LABS: BASO % 0.7 % (0-2.0); EOS % 0.3 % (0-4.5); HEMATOCRIT 18.7 % (32.4-45.2); LYMPH % 12.9 % (8-40); MCH 26.5 pg (25.7-33.7); MCHC 34.3 g/dl (32.0-36.0); MEAN CELL VOLUME 77.2 fl (80-96); MONO % 9.4 % (3.8-10.2); NEUT % 76.7 % (42.8-82.8); PLATELET COUNT 282 K/MM3 (134-434); RBC 2.43 M/mm3 (3.60-5.2); RDW 17.7 % (11.6-15.6); WHITE BLOOD COUNT 9.8 K/mm3 (4.0-10.0)
[2018-02-19 08:02] LABS: INR 1.22 (0.83-1.09); PROTHROMBIN TIME (PATIENT) 13.8 SEC (9.7-13.0)
[2018-02-19 08:03] LABS: ACTIVATED PTT 30.1 SECONDS (25.2-36.5)
[2018-02-19 08:07] LABS: CHLORIDE 109 mmol/L (98-107); POTASSIUM 4.2 mmol/L (3.5-5.1); SODIUM 143 mmol/L (136-145)
[2018-02-19 08:15] LABS: HEMOGLOBIN 6.4 GM/dL (10.7-15.3)
[2018-02-19 08:21] LABS: ALBUMIN 2.2 g/dl (3.4-5.0); ALK PHOS 110 U/L (45-117); ANION GAP 11 (8-16); BILIRUBIN,TOTAL 0.7 mg/dL (0.2-1.0); BLOOD UREA NITROGEN 15 mg/dL (7-18); CALCIUM 8.2 mg/dL (8.5-10.1); CO2 23 mmol/L (21-32); CREATININE 0.9 mg/dL (0.55-1.02); GLUCOSE,RANDOM 102 mg/dL (74-106); MAGNESIUM 2.1 mg/dL (1.8-2.4); PHOSPHOROUS 3.3 mg/dL (2.5-4.9); SGOT/AST 41 U/L (15-37); SGPT/ALT 51 U/L (12-78); TOT PROT 5.5 g/dl (6.4-8.2)
--- NOTE | 2018-02-19 09:05 | EKG ---
Test Reason : Blood Pressure : / mmHG Vent. Rate : 100 BPM Atrial Rate : 100 BPM P-R Int : 136 ms QRS Dur : 086 ms QT Int : 366 ms P-R-T Axes : 053 006 -50 degrees QTc Int : 472 ms SINUS RHYTHM WITH PREMATURE SUPRAVENTRICULAR COMPLEXES POSSIBLE LEFT ATRIAL ENLARGEMENT INFERIOR INFARCT (CITED ON OR BEFORE 05-FEB-2018) CANNOT RULE OUT ANTERIOR INFARCT (CITED ON OR BEFORE 05-FEB-2018) T WAVE ABNORMALITY, CONSIDER LATERAL ISCHEMIA ABNORMAL ECG WHEN COMPARED WITH ECG OF 05-FEB-2018 16:56, ST NO LONGER ELEVATED IN INFERIOR LEADS ST NO LONGER DEPRESSED IN LATERAL LEADS Confirmed by GAIL ARENAS, ANGELINA ([id number]) on 02/19/2018 9:04:41 AM Referred By: Confirmed By:ANGELINA REYNOLDS MD
[2018-02-19] MEDS ORDERED: PT OWN MED DRAWER 7, Y5N ONE ×2 (10:04→11:50)
--- NOTE | 2018-02-19 10:06 | PN ---
Physical Exam: SUBJECTIVE: Patient seen and examined Patient iscomfortable with no acute distress, No nausea or vomiting. OBJECTIVE: Vital Signs Temperature 99.2 F 02/19/18 05:33 Pulse Rate 98 H 02/19/18 05:33 Respiratory Rate 20 02/19/18 05:33 Blood Pressure 142/83 02/19/18 05:33 O2 Sat by Pulse Oximetry (%) 96 02/18/18 21:47 GENERAL: The patient is awake, alert, and fully oriented, in no acute distress. HEAD: Normal with no signs of trauma. EYES: PERRL, extraocular movements intact, sclera anicteric, conjunctiva clear. ENT: Ears normal, oropharynx clear without exudates, moist mucous membranes. NECK: Trachea midline, full range of motion, supple. LUNGS: Breath sounds equal, clear to auscultation bilaterally, no wheezes, no crackles, no accessory muscle use. HEART: Regular rate and rhythm, S1, S2 positive, LUCHO 2/6 , no rub or gallop. ABDOMEN: Soft, nontender, nondistended, normoactive bowel sounds, no guarding, no rebound, no hepatosplenomegaly, no masses. EXTREMITIES: 2+ pulses, warm, well-perfused, no edema. NEUROLOGICAL: Cranial nerves II through XII grossly intact. Normal speech, gait not observed. PSYCH: Normal mood, normal affect. SKIN: Warm, dry, normal turgor, no rashes or lesions noted CBCD WBC 9.8 K/mm3 (4.0-10.0) 02/19/18 06:00 RBC 2.43 M/mm3 (3.60-5.2) L 02/19/18 06:00 Hgb 6.4 GM/dL (10.7-15.3) L* 02/19/18 06:00 Hct 18.7 % (32.4-45.2) L 02/19/18 06:00 MCV 77.2 fl (80-96) L 02/19/18 06:00 MCHC 34.3 g/dl (32.0-36.0) 02/19/18 06:00 RDW 17.7 % (11.6-15.6) H 02/19/18 06:00 Plt Count 282 K/MM3 (134-434) 02/19/18 06:00 MPV 9.0 fl (7.5-11.1) 02/19/18 06:00 CMP Sodium 143 mmol/L (136-145) 02/19/18 06:00 Potassium 4.2 mmol/L (3.5-5.1) 02/19/18 06:00 Chloride 109 mmol/L (98-107) H 02/19/18 06:00 Carbon Dioxide 23 mmol/L (21-32) 02/19/18 06:00 Anion Gap 11 (8-16) 02/19/18 06:00 BUN 15 mg/dL (7-18) 02/19/18 06:00 Creatinine 0.9 mg/dL (0.55-1.02) 02/19/18 06:00 Creat Clearance w eGFR > 60 (>60) 02/19/18 06:00 Random Glucose 102 mg/dL (74-106) 02/19/18 06:00 Calcium 8.2 mg/dL (8.5-10.1) L 02/19/18 06:00 Total Bilirubin 0.7 mg/dL (0.2-1.0) 02/19/18 06:00 AST 41 U/L (15-37) H 02/19/18 06:00 ALT 51 U/L (12-78) 02/19/18 06:00 Alkaline Phosphatase 110 U/L (45-117) D 02/19/18 06:00 Total Protein 5.5 g/dl (6.4-8.2) L 02/19/18 06:00 Albumin 2.2 g/dl (3.4-5.0) L 02/19/18 06:00 CARDIAC ENZYMES Creatine Kinase 46 IU/L (26-192) 02/19/18 06:00 Troponin I 0.58 ng/ml (0.00-0.05) H 02/19/18 06:00 Current Medications Generic Name Dose Route Start Last Admin Trade Name Coleq PRN Reason Stop Dose Admin Aspirin 81 mg 02/19/18 10:00 Asa - PO DAILY [facility] Atorvastatin Calcium 80 mg 02/18/18 22:00 02/19/18 00:07 Lipitor - PO Not Given HS SADAF Clopidogrel Bisulfate 75 mg 02/19/18 10:00 Plavix - PO DAILY [facility] Pantoprazole Sodium 80 mg/ 100 mls @ 10 mls/hr 02/18/18 18:00 02/19/18 03:59 Sodium Chloride IVPB 10 mls/hr Q10H SADAF Administration 8 MG/HR Metoprolol Succinate 25 mg 02/19/18 10:00 Toprol Xl - PO DAILY [facility] Home Medications Medication Instructions Recorded Aspirin [ASA -] 81 mg PO DAILY 02/18/18 Atorvastatin Ca [Lipitor] 80 mg PO HS 02/18/18 Clopidogrel Bisulfate [Plavix -] 75 mg PO DAILY 02/18/18 Metoprolol Succinate [Toprol Xl] 25 mg PO DAILY 02/18/18 Echocardiogram 01/28/1919; ejection fraction 45%, basal septal and inferior wall akinesis, normal right ventricular size and systolic function, mild aortic and mitral regurgitation. a/p: The patient is a 67-year-old female with a history of discoid lupus, coronary artery disease, status post cardiac catheterization on 02/07/2018 with stenting of the distal right coronary artery. s/p PTCI/ coronary stenting 2 weeks ago. On ASA and Plavix x 2 weeks # aCUTE GI bleeding - Hypodermically stable. No stigmata of severe, ongoing GI bleeding at this time. Needs EGD and coloncopy to asses for intraluminal lesions unmasked by ASA and Plavix.KEEP HGB above 8 g/dl, PPI IVPB BID, Clear liquid diet. Cardiology consult APPRECIATED TO CONTINUE of ASA and Plavix. Prep for EGD and colonoscopy. # CAD/Recent Acute [place] - PER CARDIO TO CONTINUE PLAVIX/ASA DVT prophylaxis - SCD, TEDs Advance directives - Full code Visit type - Emergency Visit Emergency Visit: Yes ED Registration Date: 02/18/18 Care time: The patient presented to the Emergency Department on the above date and was hospitalized for further evaluation of their emergent condition. - New Patient This patient is new to me today: No - Critical Care Critical Care patient: No - Discharge Referral Referred to [facility] Med P.C.: No
[2018-02-19] MEDS: metoPROLOL SUCCINATE 25 MG TAB.SR.24H (FP) PO SCH (11:45)
[2018-02-19] MEDS: CLOPIDOGREL BISULFATE 75 MG TABLET (FP) PO SCH (11:45)
[2018-02-19] MEDS: ASPIRIN 81 MG CHEWABLE TABLETS PO SCH (11:46)
--- NOTE | 2018-02-19 11:56 | CON.CARD ---
Consult Consult Specialty:: cardiology Referred by:: Carlos Valle Reason for Consultation:: Coronary artery disease - History of Present Illness Chief Complaint: GI bleed - History Source History Provided By: Patient, Family Member Limitations to Obtaining History: No Limitations - Past Medical History Cardio/Vascular: Yes: CAD, HTN ...: No Rheumatology: Yes: Lupus - Alcohol/Substance Use Hx Alcohol Use: No - Smoking History Smoking history: Former smoker Have you smoked in the past 12 months: No Aproximately how many cigarettes per day: 20 If you are a former smoker, when did you quit?: 2 weeks Home Medications - Allergies Allergies/Adverse Reactions: Allergies Allergy/AdvReac Type Severity Reaction Status Date / Time No Known Allergies Allergy Verified 02/18/18 13:50 - Home Medications Home Medications: Ambulatory Orders Aspirin [ASA -] 81 mg PO DAILY 02/18/18 Atorvastatin Ca [Lipitor] 80 mg PO HS 02/18/18 Clopidogrel Bisulfate [Plavix -] 75 mg PO DAILY 02/18/18 Metoprolol Succinate [Toprol Xl] 25 mg PO DAILY 02/18/18 Review of Systems - Review of Systems Constitutional: reports: Lethargy, Malaise Eyes: reports: No Symptoms HENT: reports: No Symptoms Neck: reports: No Symptoms Cardiovascular: reports: No Symptoms Respiratory: reports: No Symptoms Gastrointestinal: reports: Abdominal Pain, Nausea, Rectal Bleeding Genitourinary: reports: No Symptoms Breasts: reports: No Symptoms Reported Musculoskeletal: reports: No Symptoms Integumentary: reports: No Symptoms Neurological: reports: No Symptoms Endocrine: reports: No Symptoms Hematology/Lymphatic: reports: No Symptoms Psychiatric: reports: No Symptoms Vital Signs: Vital Signs Temperature 99.2 F 02/19/18 05:33 Pulse Rate 98 H 02/19/18 05:33 Respiratory Rate 20 02/19/18 05:33 Blood Pressure 142/83 02/19/18 05:33 O2 Sat by Pulse Oximetry (%) 96 02/18/18 21:47 Constitutional: Yes: Well Nourished, No Distress, Calm Eyes: Yes: WNL, Conjunctiva Clear, EOM Intact HENT: Yes: WNL, Atraumatic, Normocephalic Neck: Yes: WNL, Supple, Trachea Midline Respiratory: Yes: WNL, Regular, CTA Bilaterally Gastrointestinal: Yes: Normal Bowel Sounds, Soft Renal/: Yes: WNL Cardiovascular: Yes: WNL, Regular Rate and Rhythm JVD: No Carotid Bruit: No PMI: Non-Displaced Heart Sounds: Yes: S1, S2 Murmur: Yes: Systolic Murmur, Grade 2 Musculoskeletal: Yes: WNL Extremities: Yes: WNL Edema: LLE: Trace, RLE: Trace Peripheral Pulses: 1+ Left Carotid, 1+ Right Carotid, 1+ Left Femoral, 1+ Right Femoral, 1+ Left Popliteal, 1+ Right Popliteal, 1+ Left Doralis Pedis, 1+ Right Dorsalis Pedis Integumentary: Yes: WNL Neurological: Yes: WNL, Alert, Oriented ...Motor Strength: WNL Psychiatric: Yes: WNL - Other Data Labs, Other Data: CBC, BMP 02/19/18 06:00 02/19/18 06:00 INR, PTT INR 1.22 (0.83-1.09) H 02/19/18 06:00 Troponin, BNP 02/18/18 02/19/18 15:00 06:00 Troponin I 0.21 H 0.58 H Troponin, BNP 02/18/18 02/19/18 15:00 06:00 Troponin I 0.21 H 0.58 H Assessment/Plan 67-year-old female presenting with a GI bleed. There is no evidence of ischemia nor acute coronary syndrome. No angina. The patient is status post recent inferior wall infarct. She received a drug- eluting stent to the distal right coronary artery (culprit lesion). His residual OM disease which needs to be addressed in the near future as possible. Would continue Plavix unless the bleed is completely uncontrollable, and life- threatening. May consider stopping the aspirin if needed. Transfuse packed RBCs. Try to keep hemoglobin around 10.0 as possible. The patient is stable from the cardiac standpoint. May proceed with GI workup as deemed necessary. Will follow with you. Admitting History and Physical - Admission Chief Complaint: Black stools History of Present Illness: The patient is a 67-year-old female with a history of discoid lupus, coronary artery disease, status post cardiac catheterization on 02/07/2018 with stenting of the distal right coronary artery, we have residual OM disease which was not touched. The plan was to return electively for OM stenting in near future. The patient is now presenting with nausea vomiting and black stools. She had discontinued the Plavix 2 days ago. X The patient denies chest pains and shortness of breath. No palpitations. She is supine in no apparent distress. Echocardiogram 01/28/1918; ejection fraction 45%, basal septal and inferior wall akinesis, normal right ventricular size and systolic function, mild aortic and mitral regurgitation. History Source: Patient, Family Member Limitations to Obtaining History: No Limitations - Past Medical History Cardiovascular: Yes: CAD, HTN, [place] ...: No Rheumatology: Yes: Lupus - Smoking History Smoking history: Former smoker Have you smoked in the past 12 months: No Aproximately how many cigarettes per day: 20 If you are a former smoker, when did you quit?: 2 weeks - Alcohol/Substance Use Hx Alcohol Use: No
[2018-02-19 15:42] LABS: HEMATOCRIT 24.3 % (32.4-45.2); HEMOGLOBIN 8.2 GM/dL (10.7-15.3); MCH 26.3 pg (25.7-33.7); MCHC 33.7 g/dl (32.0-36.0); MEAN CELL VOLUME 78.1 fl (80-96); MEAN PLT VOLUME 9.1 fl (7.5-11.1); PLATELET COUNT 316 K/MM3 (134-434); RBC 3.12 M/mm3 (3.60-5.2); RDW 17.4 % (11.6-15.6); WHITE BLOOD COUNT 8.9 K/mm3 (4.0-10.0)
--- NOTE | 2018-02-19 17:55 | CON.GI ---
Consult Consult Specialty:: GI Reason for Consultation:: symptomatic anemia - History of Present Illness History of Present Illness: Chart reviewed. Events and recent ED visits reviewed. AMI, s/p PTCI/ coronary stenting 2 weeks ago. On ASA and Plavix x 2 weeks. HGB in 01/26 was 11 g/d. 5.5 g/dl yesterday on presentation to ED. Never had EGD, or colonoscopy. HGB 8.5 g/dl after 2 u of PRBC. Per initial intake: Patient is a 67 year old woman with history of acute [place] ( stent 2 weeks ago) and SLE, who presents with complaint of nausea and vomiting. She went to her labeling associate for follow up and then suddenly felt dizzy and nauseous. Vomited twice - clear with food. She had a couple episodes of dark stool as well. Denies any sob, diaphoresis, chestpain, abdominal pain or headache. She has been on Asprin and Plavix since her acute [place]. Her hematocrit on February 05, 2018 was 35%, though she also had an MCV of 76 then. Denies use of NSAIDS or history of PUD. Got IV heparin 2 weeks ago as part of ACS management. Has avoided doctors most of her life - only seen a film composer. Had left hand surgery. - History Source History Provided By: Patient, Medical Record - Past Medical History Cardio/Vascular: Yes: CAD, HTN, [place] ...: No Rheumatology: Yes: Lupus - Alcohol/Substance Use Hx Alcohol Use: No - Smoking History Smoking history: Former smoker Have you smoked in the past 12 months: No Aproximately how many cigarettes per day: 20 If you are a former smoker, when did you quit?: 2 weeks Home Medications - Allergies Allergies/Adverse Reactions: Allergies Allergy/AdvReac Type Severity Reaction Status Date / Time No Known Allergies Allergy Verified 02/18/18 13:50 - Home Medications Home Medications: Ambulatory Orders Aspirin [ASA -] 81 mg PO DAILY 02/18/18 Atorvastatin Ca [Lipitor] 80 mg PO HS 02/18/18 Clopidogrel Bisulfate [Plavix -] 75 mg PO DAILY 02/18/18 Metoprolol Succinate [Toprol Xl] 25 mg PO DAILY 02/18/18 Family Disease History - Family Disease History Family History: Unremarkable Review of Systems Findings/Remarks: as per HPI, H&P, ED Physical Exam-GI Vital Signs: Vital Signs Temperature 98.6 F 02/19/18 15:28 Pulse Rate 92 H 02/19/18 15:28 Respiratory Rate 18 02/19/18 15:28 Blood Pressure 153/78 02/19/18 15:28 O2 Sat by Pulse Oximetry (%) 96 02/19/18 09:00 Constitutional: Yes: Well Nourished, No Distress, Calm Eyes: Yes: Conjunctiva Clear HENT: Yes: Other (scars) Neck: Yes: Supple Cardiovascular: Yes: Regular Rate and Rhythm Respiratory: Yes: Regular Gastrointestinal Inspection: No: Ascites, Distention ...Auscultate: Yes: Normoactive Bowel Sounds ...Palpate: Yes: Soft. No: Firm/Rigid, Guarding, Mass, Tenderness, Tenderness, Epigastium ...Rectal Exam: Yes: Guaiac Positive Neurological: Yes: Alert, Oriented Labs: CBC, BMP 02/19/18 14:50 02/19/18 06:00 INR, PTT INR 1.22 (0.83-1.09) H 02/19/18 06:00 Home Medication List Medication Instructions Recorded Confirmed Type Aspirin [ASA -] 81 mg PO DAILY 02/18/18 02/18/18 History Atorvastatin Ca [Lipitor] 80 mg PO HS 02/18/18 02/18/18 History Clopidogrel Bisulfate [Plavix -] 75 mg PO DAILY 02/18/18 02/18/18 History Metoprolol Succinate [Toprol Xl] 25 mg PO DAILY 02/18/18 02/18/18 History Active Medications Generic Name Dose Route Start Last Admin Trade Name Freq PRN Reason Stop Dose Admin Aspirin 81 mg 02/19/18 10:00 02/19/18 11:46 Asa - PO 81 mg DAILY SADAF Administration Atorvastatin Calcium 80 mg 02/18/18 22:00 02/19/18 00:07 Lipitor - PO Not Given HS SADAF Clopidogrel Bisulfate 75 mg 02/19/18 10:00 02/19/18 11:45 Plavix - PO 75 mg DAILY SADAF Administration Pantoprazole Sodium 80 mg/ 100 mls @ 10 mls/hr 02/18/18 18:00 02/19/18 14:00 Sodium Chloride IVPB Not Given Q10H SADAF 8 MG/HR Metoprolol Succinate 25 mg 02/19/18 10:00 02/19/18 11:45 Toprol Xl - PO 25 mg DAILY SADAF Administration Problem List - Problems (1) Acute blood loss anemia Code(s): D62 - ACUTE POSTHEMORRHAGIC ANEMIA (2) GI (gastrointestinal hemorrhage) Code(s): K92.2 - GASTROINTESTINAL HEMORRHAGE, UNSPECIFIED Assessment/Plan Hypodermically stable. No stigmata of severe, ongoing GI bleeding at this time. Needs EGD and coloncopy to asses for intraluminal lesions unmaseked by ASA and Plavix. Agree with keeping HGB above 8 g/dl, PPI IVPB BID, Clear liquid diet. Cardiology consult re continuation of ASA and Plavix. Prep for EGD and colonoscopy.
[2018-02-20] MEDS: PANTOPRAZOLE SODIUM 80 MG in SODIUM CHLORIDE 100 ML IVPB SCH ×3 (00:10→21:45)
[2018-02-20 06:53] LABS: BASO % 0.8 % (0-2.0); EOS % 0.6 % (0-4.5); HEMATOCRIT 25.9 % (32.4-45.2); LYMPH % 12.8 % (8-40); MCH 27.1 pg (25.7-33.7); MCHC 34.8 g/dl (32.0-36.0); MEAN CELL VOLUME 77.9 fl (80-96); MEAN PLT VOLUME 8.7 fl (7.5-11.1); MONO % 12.8 % (3.8-10.2); PLATELET COUNT 303 K/MM3 (134-434); RBC 3.33 M/mm3 (3.60-5.2); RDW 16.7 % (11.6-15.6); WHITE BLOOD COUNT 8.1 K/mm3 (4.0-10.0)
[2018-02-20 07:18] LABS: MAGNESIUM 2.1 mg/dL (1.8-2.4)
--- NOTE | 2018-02-20 08:50 | EKG ---
Test Reason : Blood Pressure : / mmHG Vent. Rate : 091 BPM Atrial Rate : 091 BPM P-R Int : 136 ms QRS Dur : 082 ms QT Int : 382 ms P-R-T Axes : 002 018 -41 degrees QTc Int : 469 ms NORMAL SINUS RHYTHM INFERIOR INFARCT (CITED ON OR BEFORE 05-FEB-2018) CANNOT RULE OUT ANTERIOR INFARCT (CITED ON OR BEFORE 05-FEB-2018) ABNORMAL ECG WHEN COMPARED WITH ECG OF 18-FEB-2018 14:37, PREMATURE SUPRAVENTRICULAR COMPLEXES ARE NO LONGER PRESENT NONSPECIFIC T WAVE ABNORMALITY HAS REPLACED INVERTED T WAVES IN LATERAL LEADS Confirmed by ANGELINA REYNOLDS MD ([id number]) on 02/20/2018 8:50:22 AM Referred By: Confirmed By:ANGELINA REYNOLDS MD
[2018-02-20] MEDS ORDERED: PT OWN MED DRAWER 7, Y5N ONE (09:37)
[2018-02-20] MEDS: metoPROLOL SUCCINATE 25 MG TAB.SR.24H (FP) PO SCH (10:39)
[2018-02-20] MEDS: ASPIRIN 81 MG CHEWABLE TABLETS PO SCH (10:39)
[2018-02-20] MEDS: CLOPIDOGREL BISULFATE 75 MG TABLET (FP) PO SCH (10:39)
--- NOTE | 2018-02-20 12:40 | PN ---
<Adryan Marquez - Last Filed: 02/20/18 16:38> Physical Exam: SUBJECTIVE: Patient seen and examined at bedside. no acute events overnight. tolerating clear liquid diet now and will Prepped later for EGD and colonoscopy for rebecca. Denies fever, cp, sob, n/v, urinary sxs OBJECTIVE: Vital Signs Period Temp Pulse Resp BP Sys/Blankenship Pulse Ox Last 24 Hr 98.6 F-99.4 F 92-100 17-18 146-155/74-98 95-97 General: AOx3 NAD HEENT: NCAT. No Jaundice, eye redness or discharge, PERRL, EOMI. Upper lip deformity with hyperpigmented lesions and vitiligo. Neck: Supple, nontender. Chest: Good effort. CTAB Heart: RRR S1 S2 no r/m/g Abdomen: NTND +BS. No rebound or guarding. Ext: Peripheral pulses intact. No leg edema. Skin: Warm and dry. No petechiae, ecchymosis. discoid lupus like rash/lesions on upper lip Neuro: CN 2-12 grossly intact. Sensation grossly intact in all four extremities Laboratory Results - last 24 hr 02/18/18 02/19/18 02/19/18 17:40 14:50 14:50 WBC 8.9 RBC 3.12 L Hgb 8.2 L Hct 24.3 L D MCV 78.1 L MCH 26.3 MCHC 33.7 RDW 17.4 H Plt Count 316 MPV 9.1 Absolute Neuts (auto) Neutrophils % Lymphocytes % Monocytes % Eosinophils % Basophils % Nucleated RBC % Phosphorus Magnesium Troponin I 0.55 H Blood Type O POSITIVE Antibody Screen Negative Crossmatch See Detail 02/20/18 02/20/18 06:05 06:05 WBC 8.1 RBC 3.33 L Hgb 9.0 L Hct 25.9 L MCV 77.9 L MCH 27.1 MCHC 34.8 RDW 16.7 H Plt Count 303 MPV 8.7 Absolute Neuts (auto) 5.9 Neutrophils % 73.0 Lymphocytes % 12.8 Monocytes % 12.8 H Eosinophils % 0.6 D Basophils % 0.8 Nucleated RBC % 0 Phosphorus 3.0 Magnesium 2.1 Troponin I Blood Type Antibody Screen Crossmatch Active Medications Generic Name Dose Route Start Last Admin Trade Name Freq PRN Reason Stop Dose Admin Aspirin 81 mg 02/19/18 10:00 02/20/18 10:39 Asa - PO 81 mg DAILY SADAF Administration Atorvastatin Calcium 80 mg 02/18/18 22:00 02/19/18 21:34 Lipitor - PO 80 mg HS [facility] Administration Bisacodyl 20 mg 02/20/18 15:00 Dulcolax - PO 02/20/18 15:01 ONCE ONE Clopidogrel Bisulfate 75 mg 02/19/18 10:00 02/20/18 10:39 Plavix - PO 75 mg DAILY [facility] Administration Pantoprazole Sodium 80 mg/ 100 mls @ 10 mls/hr 02/18/18 18:00 02/20/18 10:08 Sodium Chloride IVPB 10 mls/hr Q10H [facility] Administration 8 MG/HR Metoprolol Succinate 25 mg 02/19/18 10:00 02/20/18 10:39 Toprol Xl - PO 25 mg DAILY [facility] Administration Polyethylene Glycol/Electrolytes 4,000 ml 02/20/18 18:00 Golytely Solution - PO 02/20/18 18:01 ONCE ONE ASSESSMENT/PLAN: 67 yo F with PMH of discoid lupus, CAD, recent SD/inferior wall infarct s/p cardiac catheterization on 02/07/2018 with stenting of the distal RCA, on ASA and Plavix since her acute SD. p/w of n/v and dark stools. # Acute GI bleed - FOBT pos. Hgb 5.5....9.0 s/p s/p 3U pRBCs. Hypodermically stable. No stigmata of severe, ongoing GI bleeding at this time. Needs EGD and coloncopy to asses for intraluminal lesions unmasked by ASA and Plavix. -maintain HGB above 8 g/dl -PPI IVPB BID -Clear liquid diet. -NPO at midnight -Cardiology consult appreciated, continue aspirin and Plavix, including on the day of the procedure. -Prep for EGD and colonoscopy. # CAD/Recent Acute SD - s/p cardiac catheterization on 02/07/2018 with stenting of the distal RCA. Elevated troponin likely a residue from her recent SD. troponin trended w/ peak and dropped. -Cardiology consult appreciated, continue aspirin and Plavix, including in the day of the procedure. # FEN * F:no IVF * E: WNL * N :NPO at midnight # DVT ppx * SCD, TEDs # dispo * medsurg * Full code. * EGD and colonoscopy tomorrow Visit type - Emergency Visit Emergency Visit: Yes ED Registration Date: 02/18/18 Care time: The patient presented to the Emergency Department on the above date and was hospitalized for further evaluation of their emergent condition. - New Patient This patient is new to me today: Yes Date on this admission: 02/20/18 - Critical Care Critical Care patient: No <Tin Cantu - Last Filed: 02/20/18 16:54> Physical Exam: Patient is comfortable with no acute distress. Agree with the resident's note Vital Signs Temperature 98.9 F 02/20/18 14:00 Pulse Rate 88 02/20/18 14:00 Respiratory Rate 20 02/20/18 14:00 Blood Pressure 144/72 02/20/18 14:00 O2 Sat by Pulse Oximetry (%) 95 02/20/18 09:00 CBCD WBC 8.1 K/mm3 (4.0-10.0) 02/20/18 06:05 RBC 3.33 M/mm3 (3.60-5.2) L 02/20/18 06:05 Hgb 9.0 GM/dL (10.7-15.3) L 02/20/18 06:05 Hct 25.9 % (32.4-45.2) L 02/20/18 06:05 MCV 77.9 fl (80-96) L 02/20/18 06:05 MCHC 34.8 g/dl (32.0-36.0) 02/20/18 06:05 RDW 16.7 % (11.6-15.6) H 02/20/18 06:05 Plt Count 303 K/MM3 (134-434) 02/20/18 06:05 MPV 8.7 fl (7.5-11.1) 02/20/18 06:05 CMP Sodium 143 mmol/L (136-145) 02/19/18 06:00 Potassium 4.2 mmol/L (3.5-5.1) 02/19/18 06:00 Chloride 109 mmol/L (98-107) H 02/19/18 06:00 Carbon Dioxide 23 mmol/L (21-32) 02/19/18 06:00 Anion Gap 11 (8-16) 02/19/18 06:00 BUN 15 mg/dL (7-18) 02/19/18 06:00 Creatinine 0.9 mg/dL (0.55-1.02) 02/19/18 06:00 Creat Clearance w eGFR > 60 (>60) 02/19/18 06:00 Random Glucose 102 mg/dL (74-106) 02/19/18 06:00 Calcium 8.2 mg/dL (8.5-10.1) L 02/19/18 06:00 Total Bilirubin 0.7 mg/dL (0.2-1.0) 02/19/18 06:00 AST 41 U/L (15-37) H 02/19/18 06:00 ALT 51 U/L (12-78) 02/19/18 06:00 Alkaline Phosphatase 110 U/L (45-117) D 02/19/18 06:00 Total Protein 5.5 g/dl (6.4-8.2) L 02/19/18 06:00 Albumin 2.2 g/dl (3.4-5.0) L 02/19/18 06:00 CARDIAC ENZYMES Creatine Kinase 46 IU/L (26-192) 02/19/18 06:00 Troponin I 0.55 ng/ml (0.00-0.05) H 02/19/18 14:50 Current Medications Generic Name Dose Route Start Last Admin Trade Name Freq PRN Reason Stop Dose Admin Aspirin 81 mg 02/19/18 10:00 02/20/18 10:39 Asa - PO 81 mg DAILY S[facility] Administration Atorvastatin Calcium 80 mg 02/18/18 22:00 02/19/18 21:34 Lipitor - PO 80 mg HS [facility] Administration Clopidogrel Bisulfate 75 mg 02/19/18 10:00 02/20/18 10:39 Plavix - PO 75 mg DAILY [facility] Administration Pantoprazole Sodium 80 mg/ 100 mls @ 10 mls/hr 02/18/18 18:00 02/20/18 10:08 Sodium Chloride IVPB 10 mls/hr Q10H [facility]AD[facility] Administration 8 MG/HR Metoprolol Succinate 25 mg 02/19/18 10:00 02/20/18 10:39 Toprol Xl - PO 25 mg DAILY [facility] Administration Polyethylene Glycol/Electrolytes 4,000 ml 02/20/18 18:00 Golytely Solution - PO 02/20/18 18:01 ONCE ONE Home Medications Medication Instructions Recorded Aspirin [ASA -] 81 mg PO DAILY 02/18/18 Atorvastatin Ca [Lipitor] 80 mg PO HS 02/18/18 Clopidogrel Bisulfate [Plavix -] 75 mg PO DAILY 02/18/18 Metoprolol Succinate [Toprol Xl] 25 mg PO DAILY 02/18/18
--- NOTE | 2018-02-20 12:57 | PN ---
Progress Note, Physician Chief Complaint: GI bleed History of Present Illness: 67-year-old female with discoid lupus, coronary artery disease, status post recent inferior wall infarct, status post stenting of the distal right coronary artery, culprit lesion. Now admitted with GI bleed and severe anemia. GI workup planned for tomorrow. - Current Medication List Current Medications: Active Medications Aspirin (Asa -) 81 mg PO DAILY [facility] Last Admin: 02/20/18 10:39 Dose: 81 mg Atorvastatin Calcium (Lipitor -) 80 mg PO HS [facility] Last Admin: 02/19/18 21:34 Dose: 80 mg Bisacodyl (Dulcolax -) 20 mg PO ONCE ONE Stop: 02/20/18 15:01 Clopidogrel Bisulfate (Plavix -) 75 mg PO DAILY [facility] Last Admin: 02/20/18 10:39 Dose: 75 mg Pantoprazole Sodium 80 mg/ (Sodium Chloride) 100 mls @ 10 mls/hr IVPB Q10H [facility] Last Admin: 02/20/18 10:08 Dose: 10 mls/hr Metoprolol Succinate (Toprol Xl -) 25 mg PO DAILY [facility] Last Admin: 02/20/18 10:39 Dose: 25 mg Polyethylene Glycol/Electrolytes (Golytely Solution -) 4,000 ml PO ONCE ONE Stop: 02/20/18 18:01 - Objective Vital Signs: Vital Signs Temperature 99.2 F 02/20/18 06:00 Pulse Rate 96 H 02/20/18 10:00 Respiratory Rate 18 02/20/18 10:00 Blood Pressure 154/74 02/20/18 10:00 O2 Sat by Pulse Oximetry (%) 95 02/20/18 09:00 Constitutional: Yes: Well Nourished, No Distress, Calm Eyes: Yes: WNL, Conjunctiva Clear, EOM Intact HENT: Yes: WNL, Atraumatic, Normocephalic Neck: Yes: WNL, Supple, Trachea Midline Cardiovascular: Yes: WNL, Regular Rate and Rhythm, S1, S2 Respiratory: Yes: WNL, Regular, CTA Bilaterally Gastrointestinal: Yes: Normal Bowel Sounds, Soft ...Rectal Exam: Yes: Deferred Genitourinary: Yes: WNL Musculoskeletal: Yes: WNL Extremities: Yes: WNL Edema: No Peripheral Pulses: Left Radial: 2+, Right Radial: 2+, Left Doralis Pedis: 2+, Right Dorsalis Pedis: 2+, Left Femoral: 2+, Right Femoral: 2+ Integumentary: Yes: WNL Neurological: Yes: WNL, Alert, Oriented ...Motor Strength: WNL Psychiatric: Yes: WNL Labs: CBC, BMP 02/20/18 06:05 02/19/18 06:00 INR, PTT INR 1.22 (0.83-1.09) H 02/19/18 06:00 Assessment/Plan The patient has been stable from the cardiac standpoint. Denies chest pains and shortness of breath. The patient is medically optimized for upper/lower endoscopy. May proceed as planned. Please continue aspirin and Plavix, including in the day of the procedure. We'll follow with you.
[2018-02-20] MEDS ORDERED: BISACODYL 5 MG TABLET.DR (FP) PO ONE (15:00)
[2018-02-20] MEDS ORDERED: PEG 3350/NA SULF BICARB CL/KCL 4000 ML SOLN.RECON PO ONE (18:00)
[2018-02-20] MEDS: ATORVASTATIN CA 80 MG TABLET (FP) PO SCH (22:34)
[2018-02-21] MEDS: PANTOPRAZOLE SODIUM 80 MG in SODIUM CHLORIDE 100 ML IVPB SCH ×3 (05:16→20:28)
[2018-02-21 07:00] LABS: BASO % 1.1 % (0-2.0); EOS % 1.4 % (0-4.5); HEMATOCRIT 26.7 % (32.4-45.2); HEMOGLOBIN 9.3 GM/dL (10.7-15.3); MCH 26.9 pg (25.7-33.7); MCHC 34.7 g/dl (32.0-36.0); MEAN CELL VOLUME 77.6 fl (80-96); MEAN PLT VOLUME 8.8 fl (7.5-11.1); MONO % 14.2 % (3.8-10.2); NEUT % 71.3 % (42.8-82.8); PLATELET COUNT 322 K/MM3 (134-434); RBC 3.43 M/mm3 (3.60-5.2); RDW 17.4 % (11.6-15.6); WHITE BLOOD COUNT 7.1 K/mm3 (4.0-10.0)
--- NOTE | 2018-02-21 07:09 | PN ---
Physical Exam: SUBJECTIVE: Patient seen and examined at bedside. no acute events overnight. NPO overnight and prepped for EGD and colonoscopy for today. pt did not complete the prep but is pooping clear liquid yellow. Denies fever, cp, sob, n/v, urinary sxs OBJECTIVE: Vital Signs Period Temp Pulse Resp BP Sys/Blankenship Pulse Ox Last 24 Hr 98.0 F-99.0 F 88-96 18-20 134-154/72-84 95-97 General: AOx3 NAD HEENT: NCAT. No Jaundice, eye redness or discharge, PERRL, EOMI. Upper lip deformity with hyperpigmented lesions and vitiligo. Neck: Supple, nontender. Chest: Good effort. CTAB Heart: RRR S1 S2 no r/m/g Abdomen: NTND +BS. No rebound or guarding. Ext: Peripheral pulses intact. No leg edema. Skin: Warm and dry. No petechiae, ecchymosis. discoid lupus like rash/lesions on upper lip Neuro: CN 2-12 grossly intact. Sensation grossly intact in all four extremities Laboratory Results - last 24 hr 02/20/18 02/20/18 06:05 06:05 WBC 8.1 RBC 3.33 L Hgb 9.0 L Hct 25.9 L MCV 77.9 L MCH 27.1 MCHC 34.8 RDW 16.7 H Plt Count 303 MPV 8.7 Absolute Neuts (auto) 5.9 Neutrophils % 73.0 Lymphocytes % 12.8 Monocytes % 12.8 H Eosinophils % 0.6 D Basophils % 0.8 Nucleated RBC % 0 Phosphorus 3.0 Magnesium 2.1 Active Medications Generic Name Dose Route Start Last Admin Trade Name Freq PRN Reason Stop Dose Admin Aspirin 81 mg 02/19/18 10:00 02/20/18 10:39 Asa - PO 81 mg DAILY [facility]AD[facility] Administration Atorvastatin Calcium 80 mg 02/18/18 22:00 02/20/18 22:34 Lipitor - PO 80 mg HS [facility] Administration Clopidogrel Bisulfate 75 mg 02/19/18 10:00 02/20/18 10:39 Plavix - PO 75 mg DAILY [facility] Administration Pantoprazole Sodium 80 mg/ 100 mls @ 10 mls/hr 02/18/18 18:00 02/21/18 05:16 Sodium Chloride IVPB Not Given Q10H SADAF 8 MG/HR Metoprolol Succinate 25 mg 02/19/18 10:00 02/20/18 10:39 Toprol Xl - PO 25 mg DAILY [facility]AD[facility] Administration ASSESSMENT/PLAN: 67 yo F with PMH of discoid lupus, CAD, recent MT/inferior wall infarct s/p cardiac catheterization on 02/07/2018 with stenting of the distal RCA, on ASA and Plavix since her acute MT. p/w of n/v and dark stools. # Acute GI bleed - FOBT pos. Hgb 5.5....9.0...9.3 s/p 3U pRBCs. Hypodermically stable. No stigmata of severe, ongoing GI bleeding at this time. EGD and coloncopy today to asses for intraluminal lesions unmasked by ASA and Plavix. -maintain HGB above 8 g/dl -PPI IVPB BID -was NPO at midnight -Cardiology consult appreciated, continue aspirin and Plavix, including on the day of the procedure. -f/u EGD and colonoscopy. # CAD/Recent Acute MT - s/p cardiac catheterization on 02/07/2018 with stenting of the distal RCA. Elevated troponin likely a residue from her recent MT. troponin trended w/ peak and dropped. -Cardiology consult appreciated, continue aspirin and Plavix, including in the day of the procedure. # FEN * F:no IVF * E: WNL * N :NPO at midnight. resume PO after scope today # DVT ppx * SCD, TEDs # dispo * medsurg * Full code. * EGD and colonoscopy today Visit type - Emergency Visit Emergency Visit: Yes ED Registration Date: 02/18/18 Care time: The patient presented to the Emergency Department on the above date and was hospitalized for further evaluation of their emergent condition. - New Patient This patient is new to me today: Yes Date on this admission: 02/21/18 - Critical Care Critical Care patient: No
[2018-02-21 07:25] LABS: ALBUMIN 2.2 g/dl (3.4-5.0); ANION GAP 11 (8-16); BLOOD UREA NITROGEN 8 mg/dL (7-18); CALCIUM 8.4 mg/dL (8.5-10.1); CHLORIDE 107 mmol/L (98-107); CO2 24 mmol/L (21-32); GLUCOSE,RANDOM 91 mg/dL (74-106); POTASSIUM 3.4 mmol/L (3.5-5.1); SODIUM 142 mmol/L (136-145)
[2018-02-21 07:29] LABS: ALK PHOS 105 U/L (45-117); BILIRUBIN,TOTAL 0.7 mg/dL (0.2-1.0); CREATININE 0.8 mg/dL (0.55-1.02); SGOT/AST 36 U/L (15-37); SGPT/ALT 45 U/L (12-78); TOT PROT 5.3 g/dl (6.4-8.2)
[2018-02-21 07:40] LABS: INR 1.33 (0.83-1.09)
--- NOTE | 2018-02-21 08:53 | PN ---
Teaching Attending Note Name of Resident: Adryan Marquez ATTENDING PHYSICIAN STATEMENT I saw and evaluated the patient. I reviewed the resident's note and discussed the case with the resident. I agree with the resident's findings and plan as documented. SUBJECTIVE: OBJECTIVE: Vital Signs Temperature 99.4 F 02/21/18 06:00 Pulse Rate 89 02/21/18 06:00 Respiratory Rate 18 02/21/18 06:00 Blood Pressure 145/85 02/21/18 06:00 O2 Sat by Pulse Oximetry (%) 97 02/20/18 21:00 CBCD WBC 7.1 K/mm3 (4.0-10.0) 02/21/18 05:50 RBC 3.43 M/mm3 (3.60-5.2) L 02/21/18 05:50 Hgb 9.3 GM/dL (10.7-15.3) L 02/21/18 05:50 Hct 26.7 % (32.4-45.2) L 02/21/18 05:50 MCV 77.6 fl (80-96) L 02/21/18 05:50 MCHC 34.7 g/dl (32.0-36.0) 02/21/18 05:50 RDW 17.4 % (11.6-15.6) H 02/21/18 05:50 Plt Count 322 K/MM3 (134-434) 02/21/18 05:50 MPV 8.8 fl (7.5-11.1) 02/21/18 05:50 CMP Sodium 142 mmol/L (136-145) 02/21/18 05:50 Potassium 3.4 mmol/L (3.5-5.1) L 02/21/18 05:50 Chloride 107 mmol/L (98-107) 02/21/18 05:50 Carbon Dioxide 24 mmol/L (21-32) 02/21/18 05:50 Anion Gap 11 (8-16) 02/21/18 05:50 BUN 8 mg/dL (7-18) 02/21/18 05:50 Creatinine 0.8 mg/dL (0.55-1.02) 02/21/18 05:50 Creat Clearance w eGFR > 60 (>60) 02/21/18 05:50 Random Glucose 91 mg/dL (74-106) 02/21/18 05:50 Calcium 8.4 mg/dL (8.5-10.1) L 02/21/18 05:50 Total Bilirubin 0.7 mg/dL (0.2-1.0) 02/21/18 05:50 AST 36 U/L (15-37) 02/21/18 05:50 ALT 45 U/L (12-78) 02/21/18 05:50 Alkaline Phosphatase 105 U/L (45-117) 02/21/18 05:50 Total Protein 5.3 g/dl (6.4-8.2) L 02/21/18 05:50 Albumin 2.2 g/dl (3.4-5.0) L 02/21/18 05:50 CARDIAC ENZYMES Creatine Kinase 46 IU/L (26-192) 02/19/18 06:00 Troponin I 0.55 ng/ml (0.00-0.05) H 02/19/18 14:50 Current Medications Generic Name Dose Route Start Last Admin Trade Name Freq PRN Reason Stop Dose Admin Aspirin 81 mg 02/19/18 10:00 02/20/18 10:39 Asa - PO 81 mg DAILY [facility] Administration Atorvastatin Calcium 80 mg 02/18/18 22:00 02/20/18 22:34 Lipitor - PO 80 mg HS [facility] Administration Clopidogrel Bisulfate 75 mg 02/19/18 10:00 02/20/18 10:39 Plavix - PO 75 mg DAILY [facility] Administration Pantoprazole Sodium 80 mg/ 100 mls @ 10 mls/hr 02/18/18 18:00 02/21/18 05:16 Sodium Chloride IVPB Not Given Q10H SADAF 8 MG/HR Metoprolol Succinate 25 mg 02/19/18 10:00 02/20/18 10:39 Toprol Xl - PO 25 mg DAILY [facility] Administration Home Medications Medication Instructions Recorded Aspirin [ASA -] 81 mg PO DAILY 02/18/18 Atorvastatin Ca [Lipitor] 80 mg PO HS 02/18/18 Clopidogrel Bisulfate [Plavix -] 75 mg PO DAILY 02/18/18 Metoprolol Succinate [Toprol Xl] 25 mg PO DAILY 02/18/18 Echocardiogram 01/28/1919; ejection fraction 45%, basal septal and inferior wall akinesis, normal right ventricular size and systolic function, mild aortic and mitral regurgitation. ASSESSMENT AND PLAN: The patient is a 67-year-old female with a history of discoid lupus, coronary artery disease, status post cardiac catheterization on 02/07/2018 with stenting of the distal right coronary artery. s/p PTCI/ coronary stenting 2 weeks ago. On ASA and Plavix x 2 weeks # aCUTE GI bleeding - Hypodermically stable. patient is going for EGD and coloncopy to assess for intraluminal lesions unmasked by ASA and Plavix. KEEP HGB above 8 g/dl, PPI IVPB BID, Clear liquid diet. Cardiology consult APPRECIATED TO CONTINUE of ASA and Plavix. Prep for EGD and colonoscopy. # CAD/Recent Acute DE - PER CARDIO TO CONTINUE PLAVIX/ASA DVT prophylaxis - SCD, TEDs Advance directives - Full code follow the result of EGD and colonoscopy
[2018-02-21] MEDS ORDERED: KCL 10 MEQ IVPB 10 MEQ/100 ML INFUS.BAG IVPB SCH (10:45)
[2018-02-21] MEDS: ASPIRIN 81 MG CHEWABLE TABLETS PO SCH (10:48)
[2018-02-21] MEDS: metoPROLOL SUCCINATE 25 MG TAB.SR.24H (FP) PO SCH (10:48)
[2018-02-21] MEDS: CLOPIDOGREL BISULFATE 75 MG TABLET (FP) PO SCH (10:48)
--- NOTE | 2018-02-21 15:21 | PN ---
Progress Note, Physician Chief Complaint: Presently without complaints History of Present Illness: This is a 7-year-old female with discoid lupus, coronary artery disease, status post recent inferior wall infarct, status post stenting of the distal right coronary artery, culprit lesion. Now admitted with GI bleed and severe anemia. GI workup in progress. - Current Medication List Current Medications: Active Medications Aspirin (Asa -) 81 mg PO DAILY [facility] Last Admin: 02/21/18 10:48 Dose: 81 mg Atorvastatin Calcium (Lipitor -) 80 mg PO HS [facility] Last Admin: 02/20/18 22:34 Dose: 80 mg Clopidogrel Bisulfate (Plavix -) 75 mg PO DAILY [facility] Last Admin: 02/21/18 10:48 Dose: 75 mg Pantoprazole Sodium 80 mg/ (Sodium Chloride) 100 mls @ 10 mls/hr IVPB Q10H [facility] Last Admin: 02/21/18 05:16 Dose: Not Given Metoprolol Succinate (Toprol Xl -) 25 mg PO DAILY [facility] Last Admin: 02/21/18 10:48 Dose: 25 mg - Objective Vital Signs: Vital Signs Temperature 99.1 F 02/21/18 10:00 Pulse Rate 92 H 02/21/18 10:00 Respiratory Rate 18 02/21/18 10:00 Blood Pressure 144/92 02/21/18 10:00 O2 Sat by Pulse Oximetry (%) 93 L 02/21/18 09:00 Constitutional: Yes: Well Nourished Eyes: Yes: WNL HENT: Yes: WNL Neck: Yes: WNL Cardiovascular: Yes: Regular Rate and Rhythm (NL S1S2, No MRHG) Respiratory: Yes: CTA Bilaterally Gastrointestinal: Yes: Normal Bowel Sounds Extremities: Yes: WNL Edema: No Neurological: Yes: Alert, Oriented (Grossly nonfocal) Labs: CBC, BMP 02/21/18 05:50 02/21/18 05:50 INR, PTT INR 1.33 (0.83-1.09) H 02/21/18 05:50 Assessment/Plan 67 yo F with PMH of discoid lupus, CAD, recent PR/inferior wall infarct s/p cardiac catheterization on 02/07/2018 with stenting of the distal RCA, on ASA and Plavix since her acute PR. p/w of n/v and dark stools. GI workup is in progress. There are no direct cardiac contraindications to endoscopy and/or colonoscopy Continue current meds: Aspirin (Asa -) 81 mg PO DAILY [facility] Last Admin: 02/21/18 10:48 Dose: 81 mg Atorvastatin Calcium (Lipitor -) 80 mg PO HS [facility] Last Admin: 02/20/18 22:34 Dose: 80 mg Clopidogrel Bisulfate (Plavix -) 75 mg PO DAILY [facility] Last Admin: 02/21/18 10:48 Dose: 75 mg Pantoprazole Sodium 80 mg/ (Sodium Chloride) 100 mls @ 10 mls/hr IVPB Q10H [facility] Last Admin: 02/21/18 05:16 Dose: Not Given Metoprolol Succinate (Toprol Xl -) 25 mg PO DAILY [facility] Last Admin: 02/21/18 10:48 Dose: 25 mg Continue DAPT
[2018-02-21] MEDS ORDERED: ETOMIDATE 20 MG/10 ML AMPUL IVPUSH ONE (15:51)
[2018-02-21] MEDS ORDERED: PROPOFOL 20 ML ONE (15:51)
--- NOTE | 2018-02-21 16:49 | PROC ---
Endoscopy Procedure Endoscopy procedure completed. Please see scanned procedure report. 3 cm hiatal hernia and mild sigmoid diverticulosis otherwise normal EGD and colonoscopy. Resume previous diet. Small bowel capsule endoscopy to be scheduled before discharge.
[2018-02-21] MEDS: ATORVASTATIN CA 80 MG TABLET (FP) PO SCH (21:28)
[2018-02-21] MEDS ORDERED: POTASSIUM CHLORIDE TABS 20 MEQ TABLET.ER (FP) PO ONE (22:00)
[2018-02-22] MEDS: PANTOPRAZOLE SODIUM 80 MG in SODIUM CHLORIDE 100 ML IVPB SCH ×2 (04:30→06:39)
[2018-02-22 07:04] LABS: BASO % 0.8 % (0-2.0); EOS % 1.7 % (0-4.5); HEMATOCRIT 29.9 % (32.4-45.2); LYMPH % 18.8 % (8-40); MCH 26.4 pg (25.7-33.7); MCHC 33.6 g/dl (32.0-36.0); MEAN CELL VOLUME 78.8 fl (80-96); MEAN PLT VOLUME 8.5 fl (7.5-11.1); MONO % 14.7 % (3.8-10.2); PLATELET COUNT 347 K/MM3 (134-434); RBC 3.79 M/mm3 (3.60-5.2); RDW 18.2 % (11.6-15.6); WHITE BLOOD COUNT 6.6 K/mm3 (4.0-10.0)
[2018-02-22 07:36] LABS: CHLORIDE 110 mmol/L (98-107); POTASSIUM 4.7 mmol/L (3.5-5.1); SODIUM 144 mmol/L (136-145)
[2018-02-22 07:43] LABS: ALBUMIN 2.2 g/dl (3.4-5.0); ALK PHOS 109 U/L (45-117); ANION GAP 8 (8-16); BILIRUBIN,TOTAL 0.7 mg/dL (0.2-1.0); BLOOD UREA NITROGEN 8 mg/dL (7-18); CO2 26 mmol/L (21-32); CREATININE 1.1 mg/dL (0.55-1.02); GLUCOSE,RANDOM 89 mg/dL (74-106); SGOT/AST 30 U/L (15-37); SGPT/ALT 40 U/L (12-78); TOT PROT 5.6 g/dl (6.4-8.2)
[2018-02-22] MEDS: metoPROLOL SUCCINATE 25 MG TAB.SR.24H (FP) PO SCH (09:28)
[2018-02-22] MEDS: CLOPIDOGREL BISULFATE 75 MG TABLET (FP) PO SCH (09:28)
[2018-02-22] MEDS: ASPIRIN 81 MG CHEWABLE TABLETS PO SCH (09:28)
--- NOTE | 2018-02-22 11:34 | PN ---
Progress Note, Physician Chief Complaint: no complaints History of Present Illness: 67 yo F with PMH of discoid lupus, CAD, recent MA/inferior wall infarct s/p cardiac catheterization on 02/07/2018 with stenting of the distal RCA, on ASA and Plavix since her acute MA. p/w of n/v and dark stools. EGD showed hiatal hernia, colonoscopy showed sigmoid divertics. Awaiting outpatient capsule study. Getting IV PPI. - Current Medication List Current Medications: Active Medications Aspirin (Asa -) 81 mg PO DAILY [facility] Last Admin: 02/22/18 09:28 Dose: 81 mg Atorvastatin Calcium (Lipitor -) 80 mg PO HS [facility] Last Admin: 02/21/18 21:28 Dose: 80 mg Clopidogrel Bisulfate (Plavix -) 75 mg PO DAILY [facility] Last Admin: 02/22/18 09:28 Dose: 75 mg Pantoprazole Sodium 80 mg/ (Sodium Chloride) 100 mls @ 10 mls/hr IVPB Q10H [facility] Last Admin: 02/22/18 06:39 Dose: 10 mls/hr Metoprolol Succinate (Toprol Xl -) 25 mg PO DAILY [facility] Last Admin: 02/22/18 09:28 Dose: 25 mg - Objective Vital Signs: Vital Signs Temperature 98.8 F 02/22/18 10:00 Pulse Rate 94 H 02/22/18 10:00 Respiratory Rate 20 02/22/18 10:00 Blood Pressure 148/89 02/22/18 10:00 O2 Sat by Pulse Oximetry (%) 99 02/21/18 17:45 Constitutional: Yes: No Distress, Calm Eyes: Yes: Conjunctiva Clear, EOM Intact HENT: Yes: Normocephalic Neck: Yes: Trachea Midline Cardiovascular: Yes: Regular Rate and Rhythm Respiratory: Yes: CTA Bilaterally Gastrointestinal: Yes: Normal Bowel Sounds, Soft Musculoskeletal: Yes: WNL Edema: No Peripheral Pulses WNL: Yes Labs: CBC, BMP 02/22/18 06:15 02/22/18 06:15 INR, PTT INR 1.33 (0.83-1.09) H 02/21/18 05:50 Assessment/Plan 67 yo F with PMH of discoid lupus, CAD, recent MA/inferior wall infarct s/p cardiac catheterization on 02/07/2018 with stenting of the distal RCA, on ASA and Plavix since her acute MA. p/w of n/v and dark stools. Given recent MA and stenting, needs to continue DAPT despite bleeding Continue PPI. Outpatient capsule study. follow serial cbc. Appears stable. Start DC planning.
--- NOTE | 2018-02-22 13:28 | PN ---
Teaching Attending Note Name of Resident: Adryan Marquez ATTENDING PHYSICIAN STATEMENT I saw and evaluated the patient. I reviewed the resident's note and discussed the case with the resident. I agree with the resident's findings and plan as documented with exceptions below. SUBJECTIVE: patient seen and examined, no further dark stools, tolerating diet well, no complaints. OBJECTIVE: Vital Signs Period Temp Pulse Resp BP Sys/Blankenship Pulse Ox Last 24 Hr 98.7 F-100.0 F 83-95 16-24 133-151/66-89 94-100 Intake & Output 02/19/18 02/20/18 02/21/18 02/22/18 23:59 23:59 23:59 23:59 Intake Total 835 200 330 120 Balance 835 200 330 120 Weight 132 lb General: sitting in bed in no acute distress Chest:CTAB, no rales or wheezing Abdomen:Soft, NT throughout, ND, positive bowel sounds Extremities: no edema Home Medications Medication Instructions Recorded Aspirin [ASA -] 81 mg PO DAILY 02/18/18 Atorvastatin Ca [Lipitor] 80 mg PO HS 02/18/18 Clopidogrel Bisulfate [Plavix -] 75 mg PO DAILY 02/18/18 Metoprolol Succinate [Toprol Xl] 50 mg PO DAILY 02/22/18 Active Medications Aspirin (Asa -) [address] [facility] Last Admin: 02/22/18 09:28 Dose: 81 mg Atorvastatin Calcium (Lipitor -) 80 mg PO [facility] Last Admin: 02/21/18 21:28 Dose: 80 mg Clopidogrel Bisulfate (Plavix -) [address] [facility] Last Admin: 02/22/18 09:28 Dose: 75 mg Pantoprazole Sodium 80 mg/ (Sodium Chloride) 100 mls @ 10 mls/hr IVPB Q10H [facility] Last Admin: 02/22/18 06:39 Dose: 10 mls/hr Metoprolol Succinate (Toprol Xl -) [address] [facility] Last Admin: 02/22/18 09:28 Dose: 25 mg Echocardiogram 01/28/1918; ejection fraction 45%, basal septal and inferior wall akinesis, normal right ventricular size and systolic function, mild aortic and mitral regurgitation. ASSESSMENT AND PLAN: 67 yof with PMhx of CAD s/p recent inferior wall SC s/p RCA RAVINDRA PCI 02/07/2018, on ASA/plavix admitted with dark tarry stools and Hb 5.5. -Anemia, suspect from acute GI blood loss -CAD s/p recent inferior wall SC s/p RCA RAVINDRA PCI 02/07/2018 Plan hb stable. No gross evidence of bleed, tolerating diet. Protonix drip per GI. EGD/colonoscopy with 3 cm Discuss with GI for capsule endoscopy, inpatient vs outpatient. ASA/plavix, continue for now as tolerating with no gross hemodynamically concerning Bleed. Cotninue metoprolol/statin as tolerated. DVTPPX SCD TEDs Dispo pending GI input and further work up vs dc with outpatient CBC monitoring and GI follow up for capsule endoscopy. Plan discussed with patient in detail, all questions answered.
[2018-02-22 15:53] VITALS: BP 129/57; PULSE 92; TEMP 98.4
--- NOTE | 2018-02-22 17:43 | DS ---
Physical Exam: SUBJECTIVE: Patient seen and examined at bedside. no acute events overnight. tolerating PO well w/ good BMs. Denies fever, cp, sob, n/v, urinary sxs OBJECTIVE: Vital Signs Period Temp Pulse Resp BP Sys/Blankenship Pulse Ox Last 24 Hr 98.4 F-100.0 F 88-95 18-20 129-151/57-89 94-99 PHYSICAL EXAM General: AOx3 NAD HEENT: NCAT. No Jaundice, eye redness or discharge, PERRL, EOMI. Upper lip deformity with hyperpigmented lesions and vitiligo. Neck: Supple, nontender. Chest: Good effort. CTAB Heart: RRR S1 S2 no r/m/g Abdomen: NTND +BS. No rebound or guarding. Ext: Peripheral pulses intact. No leg edema. Skin: Warm and dry. No petechiae, ecchymosis. discoid lupus like rash/lesions on upper lip Neuro: CN 2-12 grossly intact. Sensation grossly intact in all four extremities LABS Laboratory Results - last 24 hr 02/18/18 02/22/18 02/22/18 17:40 06:15 06:15 WBC 6.6 RBC 3.79 Hgb 10.0 L Hct 29.9 L MCV 78.8 L MCH 26.4 MCHC 33.6 RDW 18.2 H Plt Count 347 MPV 8.5 Absolute Neuts (auto) 4.2 Neutrophils % 64.0 Lymphocytes % 18.8 D Monocytes % 14.7 H Eosinophils % 1.7 Basophils % 0.8 Nucleated RBC % 0 Sodium 144 Potassium 4.7 Chloride 110 H Carbon Dioxide 26 Anion Gap 8 BUN 8 Creatinine 1.1 H Creat Clearance w eGFR 49.39 Random Glucose 89 Calcium 9.0 Total Bilirubin 0.7 AST 30 ALT 40 Alkaline Phosphatase 109 Total Protein 5.6 L Albumin 2.2 L Blood Type O POSITIVE Antibody Screen Negative Crossmatch See Detail HOSPITAL COURSE: Date of Admission:02/18/18 Date of Discharge: 02/22/18 67 yo F with PMH of discoid lupus, CAD, recent CT/inferior wall infarct s/p cardiac catheterization on 02/07/2018 with RAVINDRA of the distal RCA, on ASA and Plavix since her acute CT. p/w of n/v and dark stools and Hgb 5.5 Admitted for Anemia (Hgb 5.5) w/ suspect from acute GI blood loss. Vitals were stable w/ mild tachy in the 90s. No obvious signs of active bleeding were noticed. Hgb 5.5 and FOBT positive. Pt recieved 2U pRBCs and anemia corrected to 9.3, GI was consulted and pt was put on Protonix drip and prepped for scope , which showed 3 cm hiatal hernia and mild sigmoid diverticulosis otherwise normal EGD and colonoscopy. Pt has been scheduled for f/u w/ Small bowel capsule endoscopy at [facility]. Pt H/H remained stable and pt tolerated PO. ASA/ plavix was not held in consideration of recent inferior wall CT w/ RAVINDRA of the distal RCA, cardio was consulted. Pt is hemodynamically stable and ready for discharge w/ f/u at [facility] for Small bowel capsule endoscopy. Minutes to complete discharge: 40 Discharge Summary Reason For Visit: TARRY STOOLS Current Active Problems Acute blood loss anemia (Acute) GI (gastrointestinal hemorrhage) (Acute) Low hemoglobin (Acute) Myocardial infarction (Chronic) Condition: Stable - Instructions Diet, Activity, Other Instructions: You were admitted for low blood levels and dark stools. We gave you blood transfusion and your blood levels corrected. You were seen by GI doctor and had a endoscopy and colonoscopy which were found to be relatively normal with no signs of bleeding. You still require further GI workup. We have scheduled you for a Small bowel capsule endoscopy which is a pill that will take pictures of your small intestines to look for any bleeding. Please follow up on March 09 at 1:30pm for a 3pm appointment at [address] [place] [address], Please call the office 1 week before your appointment to confirm. 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 in 1 week If you experience any fevers, chest pain, chills, abdominal pain, blood in your stools, nausea, vomiting, please call 911 or come to the ER Referrals: Vineet Lu MD [Staff Physician] - 1 Week Luciano Pierce MD [Staff Physician] - Forest Torres MD [Staff Physician] - 1 Week Disposition: HOME - Home Medications Comprehensive Discharge Medication List: Ambulatory Orders Aspirin [ASA -] 81 mg PO DAILY 02/18/18 Atorvastatin Ca [Lipitor] 80 mg PO HS 02/18/18 Clopidogrel Bisulfate [Plavix -] 75 mg PO DAILY 02/18/18 Metoprolol Succinate [Toprol Xl] 50 mg PO DAILY 02/22/18 This patient is new to me today: Yes Date on this admission: 02/22/18 Emergency Visit: Yes ED Registration Date: 02/18/18 Care time: The patient presented to the Emergency Department on the above date and was hospitalized for further evaluation of their emergent condition. Critical Care patient: No - Discharge Referral Referred to [facility] No
== END 2018-02-22 18:28 | disposition home or self-care (01) | DRG 377 ==
LOC: JER 13:36 → JERBED 18:53 → J5S 22:52
PROVIDERS: ADMIT Internal Medicine; ATTEND Hospitalist
PROC: 30233N1 Transfusion of Nonautologous Red Blood Cells into Peripheral Vein, Percutaneous Approach (ICD-10-PCS; 2018-02-18)
PROC: 0DJD8ZZ Inspection of Lower Intestinal Tract, Via Natural or Artificial Opening Endoscopic (ICD-10-PCS; 2018-02-21)
PROC: 0DJ08ZZ Inspection of Upper Intestinal Tract, Via Natural or Artificial Opening Endoscopic (ICD-10-PCS; principal; 2018-02-21 14:30)
DX: K92.2 Gastrointestinal hemorrhage, unspecified (principal); I21.19 ST elevation (STEMI) myocardial infarction involving other coronary artery of inferior wall; D62 Acute posthemorrhagic anemia; K44.9 Diaphragmatic hernia without obstruction or gangrene; K57.30 Diverticulosis of large intestine without perforation or abscess without bleeding; I25.10 Atherosclerotic heart disease of native coronary artery without angina pectoris; Z95.5 Presence of coronary angioplasty implant and graft; Z87.891 Personal history of nicotine dependence; I10 Essential (primary) hypertension; L93.0 Discoid lupus erythematosus
CPT/HCPCS: 36415; 36430; 71045-TC-FY; 80053; 82272; 82550; 83690; 83735; 84100; 84484; 85025; 85027; 85610; 85730; 86850; 86900; 86901; 86922; 93005; 93010; 97116-GP; 97161-GP; 99285-25; J0131; P9038; P9058

== ENCOUNTER 2018-03-25 22:50 | Inpatient (IN) | payer OTHER, BC ==
[2018-03-26 00:06] VITALS: BMI 21.9
[2018-03-26 00:18] LABS: BASO % 0.8 % (0-2.0); EOS % 0.6 % (0-4.5); LYMPH % 25.6 % (8-40); MCH 22.6 pg (25.7-33.7); MCHC 29.9 g/dl (32.0-36.0); MEAN CELL VOLUME 75.5 fl (80-96); MEAN PLT VOLUME 8.6 fl (7.5-11.1); MONO % 16.1 % (3.8-10.2); NEUT % 56.9 % (42.8-82.8); PLATELET COUNT 304 K/MM3 (134-434); RBC 2.47 M/mm3 (3.60-5.2); RDW 19.6 % (11.6-15.6); WHITE BLOOD COUNT 5.6 K/mm3 (4.0-10.0)
[2018-03-26 00:28] LABS: INR 1.1 (0.83-1.09); PROTHROMBIN TIME (PATIENT) 12.4 SEC (9.7-13.0)
[2018-03-26 00:36] LABS: ALBUMIN 3.2 g/dl (3.4-5.0); ALK PHOS 103 U/L (45-117); ANION GAP 7 MMOL/L (8-16); BILIRUBIN,TOTAL 0.3 mg/dL (0.2-1.0); BLOOD UREA NITROGEN 20 mg/dL (7-18); CALCIUM 8.7 mg/dL (8.5-10.1); CHLORIDE 109 mmol/L (98-107); CO2 28 mmol/L (21-32); CREATININE 1.2 mg/dL (0.55-1.3); GLUCOSE,RANDOM 141 mg/dL (74-106); POTASSIUM 4.4 mmol/L (3.5-5.1); SGOT/AST 28 U/L (15-37); SGPT/ALT 27 U/L (13-61); SODIUM 144 mmol/L (136-145); TOT PROT 6.8 g/dl (6.4-8.2)
[2018-03-26 00:38] LABS: HEMATOCRIT 18.7 % (32.4-45.2); HEMOGLOBIN 5.6 GM/dL (10.7-15.3)
--- NOTE | 2018-03-26 00:40 | PDOC ---
History of Present Illness <Edelmira Verdugo - Last Filed: 03/26/18 02:31> - General History Source: Patient Exam Limitations: No Limitations - History of Present Illness Initial Comments: 03/26/18 01:51 The patient is a 68-year-old female with past medical history significant for discoid lupus, CAD, recent Inferior STEMI with Q waves s/p cardiac catheterization on 02/07/2018 with RAVINDRA of the distal RCA, HTN, on ASA and Plavix since acute [place] presents to the emergency department with abnormal lab result. 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 Dr. Haney calls in for the patient, stating the patient had a Hg level of 5.0. Patients records indicated she was seen at the ED on 04/28, was admitted to the hospital for anemia (hgb 5.5) with the suspect from acute GI blood loss. During the stay, the patient received 2 units of RBCs and anemia was corrected to 9.3. The patient had an Endoscopy done which showed 3 cm hiatal hernia and mild sigmoid diverticulosis, otherwise normal EGD and colonoscopy. The patient was discharged on 02/22/18. The patient was scheduled for a small bowel capsule endoscopy. The patient reports following up having the test done with Dr. Luz Maria Jacobs, which came back positive but the patient is unsure of the details. The patient endorses symptoms of lightheadedness and generalized weakness for the past couple of weeks. Denies chest pain or palpitations. Denies any black or bloody stool. Allergies: NKA Social history: The patient is a former smoker. No past or present alcohol or illicit drug use reported. Surgical history: Cardiac Stents PCP: None Director Of Career Services: Dr. Haney. <Jesus Estrella - Last Filed: 03/26/18 02:53> - General Chief Complaint: Weakness Stated Complaint: PCP SENT/LIGHTHEADED Time Seen by Provider: 03/25/18 23:25 Past History <Edelmira Verdugo - Last Filed: 03/26/18 02:31> - Past Medical History Anemia: No Asthma: No Cancer: No Cardiac Disorders: Yes ([place] stent) CVA: No COPD: No CHF: No DVT: No Dementia: No Diabetes: No GI Disorders: No Disorders: No HTN: Yes Hypercholesterolemia: No Liver Disease: No Seizures: No Thyroid Disease: No - Surgical History Abdominal Surgery: No Appendectomy: No Cardiac Surgery: Yes (stent 01/2018) Cholecystectomy: No Lung Surgery: No Neurologic Surgery: No Orthopedic Surgery: No - Suicide/Smoking/Psychosocial Hx Smoking History: Former smoker Have you smoked in the past 12 months: No Number of Cigarettes Smoked Daily: 20 If you are a former smoker, when did you quit?: 2 weeks Information on smoking cessation initiated: No Hx Alcohol Use: No Drug/Substance Use Hx: No Substance Use Type: None <SameerJesus camacho - Last Filed: 03/26/18 02:53> - Past Medical History Allergies/Adverse Reactions: Allergies Allergy/AdvReac Type Severity Reaction Status Date / Time No Known Allergies Allergy Verified 03/26/18 00:13 Home Medications: Ambulatory Orders Aspirin [ASA -] 81 mg PO DAILY 02/18/18 Atorvastatin Ca [Lipitor] 80 mg PO HS 02/18/18 Clopidogrel Bisulfate [Plavix -] 75 mg PO DAILY 02/18/18 Metoprolol Succinate [Toprol Xl] 50 mg PO DAILY 02/22/18 Furosemide [Lasix -] 20 mg PO DAILY 03/26/18 Pantoprazole Sodium [Protonix -] 40 mg PO DAILY 03/26/18 Review of Systems - Review of Systems Able to Perform ROS?: Yes Comments:: 03/26/18 00:50 CONSTITUTIONAL: (+) Hemoglobin level of 5. Generalized weakness. No reported: Fever, Chills, Diaphoresis, Malaise, Loss of Appetite HEENT: No reported: Rhinorrhea, Nasal Congestion, Throat Pain, Throat Swelling, Difficulty Swallowing, Mouth Swelling, Ear Pain, Eye Pain, Visual Changes CARDIOVASCULAR: No reported: Chest Pain, Syncope, Palpitations, Irregular Heart Rate, Lightheadedness, Peripheral Edema RESPIRATORY: No reported: Cough, Shortness of Breath, SOB with Exertion, Orthopnea, Wheezing , Stridor, Hemoptysis GASTROINTESTINAL: No reported: Abdominal pain, Abdominal Distension, Nausea, Vomiting, Diarrhea, Constipation, Melena, Hematochezia GENITOURINARY: No reported: Dysuria, Frequency, Urgency, Hesitancy, Flank Pain, Genital Pain MUSCULOSKELETAL: No reported: Myalgia, Arthralgia, Joint Swelling, Back pain, Neck Pain SKIN: No reported: Rash, Itching, Pallor HEMEATOLOGIC/IMMUNOLOGIC: No reported: Easy Bleeding, Easy Bruising, Lymphadenopathy, Frequent infections ENDOCRINE: No reported: Unexplained Weight Gain, Unexplained Weight Loss, Heat Intolerance , Cold Intolerance NEUROLOGIC: (+) Lightheadedness. No reported: Headache, Focal Weakness, Paresthesias, Vertigo, Unsteady Gait, Seizure, Mental Status Changes, Incontinence PSYCHIATRIC: No reported: Anxiety, Depression <Edelmira Verdugo - Last Filed: 03/26/18 02:31> *Physical Exam - Vital Signs Last Vital Signs Temp Pulse Resp BP Pulse Ox 99.0 F 96 H 18 170/91 100 03/25/18 23:20 03/25/18 23:20 03/25/18 23:20 03/25/18 23:20 03/25/18 23:20 <Edelmira Verdugo - Last Filed: 03/26/18 02:31> - Vital Signs Last Vital Signs Temp Pulse Resp BP Pulse Ox 99.0 F 96 H 18 170/91 100 03/25/18 23:20 03/25/18 23:20 03/25/18 23:20 03/25/18 23:20 03/25/18 23:20 - Physical Exam Comments: 03/26/18 01:51 GENERAL: The patient is awake, alert, and fully oriented, Nontoxic - in no acute distress. HEAD: Normocephalic, atraumatic. EYES: extraocular movements intact, sclera anicteric, conjunctiva pale ENT: Normal voice, Moist mucous membranes. NECK: Normal range of motion, supple LUNGS: Breath sounds equal, clear to auscultation bilaterally. No wheezes, no rhonchi, no rales. HEART: Regular rate and rhythm, normal S1 and S2 without murmur, rub or gallop. ABDOMEN: Soft, nontender, normoactive bowel sounds. No guarding, no rebound. . No CVA tenderness EXTREMITIES: Normal range of motion, no edema. No clubbing or cyanosis. No cords, erythema, or tenderness. NEUROLOGICAL: No facial assymetry, Normal speech, PSYCH: Normal mood, normal affect. SKIN: Warm, Dry, normal turgor, <Sameer,Jesus - Last Filed: 03/26/18 02:53> Heart Score/ECG Review - ECG Impressions Comment:: 03/26/18 02:19 Twelve-lead EKG was performed and reviewed by me. There is normal sinus rhythm with a normal rate. Rate of 94 Wave inversion in the lateral and inferior leads Q waves in the inferior leads <Jesus Estrella - Last Filed: 03/26/18 02:53> ED Treatment Course - LABORATORY CBC & Chemistry Diagram: 03/25/18 23:55 03/25/18 23:55 - ADDITIONAL ORDERS Additional order review: Laboratory Results 03/25/18 03/25/18 23:55 23:55 PT with INR 12.40 INR 1.10 H Sodium 144 Potassium 4.4 Chloride 109 H Carbon Dioxide 28 Anion Gap 7 L BUN 20 H Creatinine 1.2 Creat Clearance w eGFR 44.54 Random Glucose 141 H Calcium 8.7 Total Bilirubin 0.3 AST 28 ALT 27 Alkaline Phosphatase 103 Total Protein 6.8 Albumin 3.2 L 03/25/18 23:55 RBC 2.47 L MCV 75.5 L MCHC 29.9 L RDW 19.6 H MPV 8.6 Neutrophils % 56.9 Lymphocytes % 25.6 D Monocytes % 16.1 H Eosinophils % 0.6 Basophils % 0.8 <Edelmira Verdugo - Last Filed: 03/26/18 02:31> - LABORATORY CBC & Chemistry Diagram: 03/25/18 23:55 03/25/18 23:55 - ADDITIONAL ORDERS Additional order review: Laboratory Results 03/25/18 03/25/18 23:55 23:55 PT with INR 12.40 INR 1.10 H Sodium 144 Potassium 4.4 Chloride 109 H Carbon Dioxide 28 Anion Gap 7 L BUN 20 H Creatinine 1.2 Creat Clearance w eGFR 44.54 Random Glucose 141 H Calcium 8.7 Total Bilirubin 0.3 AST 28 ALT 27 Alkaline Phosphatase 103 Total Protein 6.8 Albumin 3.2 L 03/25/18 23:55 RBC 2.47 L MCV 75.5 L MCHC 29.9 L RDW 19.6 H MPV 8.6 Neutrophils % 56.9 Lymphocytes % 25.6 D Monocytes % 16.1 H Eosinophils % 0.6 Basophils % 0.8 - RADIOLOGY Radiology Studies Ordered: Category Date Time Status CHEST X-RAY PORTABLE* [RAD] Stat Radiology 03/26/18 00:01 Taken <Jesus Estrella - Last Filed: 03/26/18 02:53> Medical Decision Making - Medical Decision Making 03/26/18 00:48 Call placed to [facility] at , trying to reach Dr. Luz Maria Jacobs. Waiting for a call back from Dr. Monaco. Second call placed to Dr. Monaco at 12:38 am, waiting for a call back. Case discussed with Dr. Monaco at 12:45 am. 03/26/18 02:31 Second call placed to Dr. Pierce at 2:25 am, waiting for a call back. <Edelmira Verdugo - Last Filed: 03/26/18 02:31> - Medical Decision Making 03/26/18 00:52 hbg 5.6 - will transfuse prb Case dw dr. Monaco states he does not have th eresults of the capsule endoscopy - but may be able to get it tomorrow. agrees with transfusion and resusitation at [facility]. pt otherwise hemodynamically stable will admit for further management 03/26/18 01:[address] Daily, agree with admission under dr. Valle service Case discussed in detail with admitting physician including history, physical exam and ancillary studies. Admitting physician has assumed care for the patient, will follow all pending diagnostics and will complete the evaluation and treatment. 03/26/18 02:52 dr. pierce was paged. have not heard back yet, roger licea - they will pg GI <Jesus Estrella - Last Filed: 03/26/18 02:53> *DC/Admit/Observation/Transfer - Attestations Scribe Attestion: 03/26/18 00:49 Documentation prepared by Edelmira Verdugo, acting as biomedical repair technician for Jesus Estrella MD. <Edelmira Verdugo - Last Filed: 03/26/18 02:31> - Discharge Dispostion Decision to Admit order: Yes <Jesus Estrella - Last Filed: 03/26/18 02:53> Diagnosis at time of Disposition: Acute blood loss anemia GI (gastrointestinal hemorrhage) Qualifiers: GI bleed type/associated pathology: unspecified gastrointestinal hemorrhage type Qualified Code(s): K92.2 - Gastrointestinal hemorrhage, unspecified - Discharge Dispostion Condition at time of disposition: Guarded
--- NOTE | 2018-03-26 02:27 | PN ---
Teaching Attending Note Name of Resident: Josse Daily ATTENDING PHYSICIAN STATEMENT I saw and evaluated the patient. I reviewed the resident's note and discussed the case with the resident. I agree with the resident's findings and plan as documented. SUBJECTIVE: Patient is a 68 year old woman with PMH of discoid lupus, CAD, recent Inferior STEMI with Q waves s/p cardiac catheterization on 02/07/2018 with RAVINDRA of the distal RCA, HTN, on ASA and Plavix since acute [place] who presents to the ER with abnormal lab result. 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 She was admitted on 02/18/18 for anemia (hgb 5.5) to rule out acute GI blood loss. Patient received 2 units of RBCs and anemia was corrected to 9.3. She had EGD which showed 3 cm hiatal hernia and mild sigmoid diverticulosis and normal colonoscopy. Was discharged on 02/22/18 and scheduled for a small bowel capsule endoscopy. The test was done with Dr. Luz Maria Jacobs, which came back positive but the patient is unsure of the details. She has had lightheadedness and generalized weakness for the past couple of weeks. Denies chest pain, palpitations, dark tarry or bloody stool. Stool is guaiac positive. Stopped smoking February 05, 2018. OBJECTIVE: Alert Vital Signs Period Temp Pulse Resp BP Sys/Blankenship Pulse Ox Last 24 Hr 99.0 F 96 18 170/91 100-100 HEENT: No Jaundice, eye redness or discharge, PERRLA, EOMI. Normocephalic, atraumatic. External ears are normal and hearing is grossly intact. No nasal discharge. Lip-tip vitiligo and upper lip deformity. Neck: Supple, nontender. No palpable adenopathy or thyromegaly. No JVD Chest: Good effort. Clear to auscultation and percussion. Heart: Regular. No S3, rub or murmur Abdomen: Not distended, soft, nontender and no HSM. No rebound or guarding. Normoactive bowel sounds. Ext: Peripheral pulses intact. No leg edema. Skin: Warm and dry. No petechiae, rash or ecchymosis. Neuro: Alert. Oriented x3. CN 2-12 grossly intact. Sensation grossly intact in all four extremities and DTR are symmetric. Home Medications Medication Instructions Recorded Aspirin [ASA -] 81 mg PO DAILY 02/18/18 Atorvastatin Ca [Lipitor] 80 mg PO HS 02/18/18 Clopidogrel Bisulfate [Plavix -] 75 mg PO DAILY 02/18/18 Metoprolol Succinate [Toprol Xl] 50 mg PO DAILY 02/22/18 Furosemide [Lasix -] 20 mg PO DAILY 03/26/18 Pantoprazole Sodium [Protonix -] 40 mg PO DAILY 03/26/18 Abnormal Lab Results 03/25/18 03/25/18 03/25/18 23:55 23:55 23:55 RBC 2.47 L Hgb 5.6 L* Hct 18.7 L D MCV 75.5 L MCH 22.6 L MCHC 29.9 L RDW 19.6 H Monocytes % 16.1 H INR Chloride 109 H Anion Gap 7 L BUN 20 H Random Glucose 141 H Albumin 3.2 L Crossmatch See Detail 03/25/18 23:55 RBC Hgb Hct MCV MCH MCHC RDW Monocytes % INR 1.10 H Chloride Anion Gap BUN Random Glucose Albumin Crossmatch ASSESSMENT AND PLAN: 1. Severe symptomatic Low MCV anemia - Chiefly due to GI blood loss. Will get report of her capsule endoscopy and consult GI. Consider tagged rbc scan if she starts actively bleeding briskly again. Transfuse PRBC and give protonix 40 mg IV q 12 hours. Restart her usual antihypertensive drugs. She is taking an ineffective oral iron preparation. Give Venofer 500 mg IV qd x 2 doses after she gets PRBC. 2. DVT prophylaxis - SCD, TEDs 3. Advance directives - Full code
--- NOTE | 2018-03-26 03:23 | HP ---
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 Admits the symptoms have been constant throughout the day, and palliated with rest. She was sent to ED from her PCP Dr. Randolph after a low Hb on CBC. She was admitted for low Hb one month ago, and underwent endscopy, colonoscopy which showed hiatal hernia, and sigmoid diverticulosis. She had capsule endoscopy done at [facility] after discharge. Today denies changes in vision, headache, trauma, falls, loss of consciousness, fevers, chills, shortness of breath, cough, chest pain, palpitations, abdominal pain, nausea, vomiting, diarrhea, constipation, melena, hematochezia, dysuria, hematuria. ER course was notable for: (1) Hb 5.6 (2) 1unit PRBCs (3) +stool occult blood Recent Travel: PAST MEDICAL HISTORY: as per HPI PAST SURGICAL HISTORY: as per HPI Social History: Smoking: former smoker Alcohol: denies Drugs: denies Family History: Allergies No Known Allergies Allergy (Verified 03/26/18 00:13) HOME MEDICATIONS: Home Medications Medication Instructions Recorded Aspirin [ASA -] 81 mg PO DAILY 02/18/18 Atorvastatin Ca [Lipitor] 80 mg PO HS 02/18/18 Clopidogrel Bisulfate [Plavix -] 75 mg PO DAILY 02/18/18 Metoprolol Succinate [Toprol Xl] 50 mg PO DAILY 02/22/18 Furosemide [Lasix -] 20 mg PO DAILY 03/26/18 Pantoprazole Sodium [Protonix -] 40 mg PO DAILY 03/26/18 REVIEW OF SYSTEMS CONSTITUTIONAL: Admits: Lightheadedness, generalized weakness. Denies fevers, chills, recent change in weight, or change in appetite. HEENT: Denies: Headache, changes in her vision, changes in her hearing, tinnitus, difficulty swallowing CARDIOVASCULAR: Denies: Chest pain, syncope, palpitations, lower extremity edema RESPIRATORY: Denies: Shortness of breath, wheezing, hemoptysis. GASTROINTESTINAL: Denies: Abdominal pain, nausea, diarrhea, constipation, melanotic stools, roslyn blood in stools. GENITOURINARY: Denies: Dysuria, hematuria, urinary urgency, urinary hesitancy, flank pain, SKIN: Denies: Pruritis, new rashes, new bruises. HEMATOLOGIC/IMMUNOLOGIC: Denies: Increased bleeding, easy bruising, or lymphadenopathy. PSYCHIATRIC: Denies: Feeling anxious or depressed. Denies suicidal or homocidal ideation. PHYSICAL EXAMINATION Vital Signs - 24 hr 03/25/18 03/26/18 23:20 01:28 Temperature 99.0 F Pulse Rate 96 H Respiratory 18 Rate Blood Pressure 170/91 O2 Sat by Pulse 100 100 Oximetry (%) GENERAL: Patient is awake, alert, and fully oriented to person, place, and time , in no acute distress. HEAD: Normocephalic, atraumatic. EYES: Pupils equal, round and reactive to light, extraocular movements intact, sclera anicteric, conjunctiva clear, with mild pallor B/L. EARS, NOSE, THROAT: Ears normal, nares patent, oropharynx clear without exudates. Moist mucous membranes. NECK: Supple without lymphadenopathy, or masses. LUNGS: Good inspiratory effort. Breath sounds equal, clear to auscultation bilaterally. No wheezes, and no crackles. No accessory muscle use. HEART: Regular rate and rhythm, normal S1 and S2 with holosystolic murmur best appreciated at apex. ABDOMEN: Soft, nondistended. Nontender to light and deep palpation X4 quadrants. Normoactive bowel sounds X4 quadrants. No guarding, no rebound. No hepatomegaly. No splenomegaly. RECTAL: Good sphincter tone. No external hemorrhoids. Rectal vault empty. Streak of dark brown stool, without roslyn blood on gloved finger. Sent sample for occult blood. UPPER EXTREMITIES: 2+ pulses, warm. Strength 5/5 B/L upper extremities in flexion, extension, abduction, adduction. LOWER EXTREMITIES: 2+ pulses, warm. No peripheral edema B/L. Strength 5/5 B/L hip flexion, extension, and leg flexion, extension. NEUROLOGICAL: Cranial nerves II-XII intact. Normal speech. PSYCHIATRIC: Cooperative patient. Appropriate mood and affect upon my exam. SKIN: Warm, dry. Discoid lupus lesions noted over lips, and left sided forehead. Laboratory Results - last 24 hr 03/25/18 03/25/18 03/25/18 23:55 23:55 23:55 WBC 5.6 RBC 2.47 L Hgb 5.6 L* Hct 18.7 L D MCV 75.5 L MCH 22.6 L MCHC 29.9 L RDW 19.6 H Plt Count 304 MPV 8.6 Absolute Neuts (auto) 3.2 Neutrophils % 56.9 Lymphocytes % 25.6 D Monocytes % 16.1 H Eosinophils % 0.6 Basophils % 0.8 Nucleated RBC % 0 PT with INR INR Sodium 144 Potassium 4.4 Chloride 109 H Carbon Dioxide 28 Anion Gap 7 L BUN 20 H Creatinine 1.2 Creat Clearance w eGFR 44.54 Random Glucose 141 H Calcium 8.7 Total Bilirubin 0.3 AST 28 ALT 27 Alkaline Phosphatase 103 Total Protein 6.8 Albumin 3.2 L Stool Occult Blood Crossmatch See Detail 03/25/18 03/26/18 23:55 01:55 WBC RBC Hgb Hct MCV MCH MCHC RDW Plt Count MPV Absolute Neuts (auto) Neutrophils % Lymphocytes % Monocytes % Eosinophils % Basophils % Nucleated RBC % PT with INR 12.40 INR 1.10 H Sodium Potassium Chloride Carbon Dioxide Anion Gap BUN Creatinine Creat Clearance w eGFR Random Glucose Calcium Total Bilirubin AST ALT Alkaline Phosphatase Total Protein Albumin Stool Occult Blood Positive Crossmatch ASSESSMENT/PLAN: Patient is a 68 year old female with history of discoid lupus, 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 Microcytic anemia -Hb 5.6 Hct 18. MCV 75.5 -Positive stool for occult blood. Source may be upper vs. lower GI bleed -Last colonoscopy last month showed diverticulosis. Will obtain capsule endoscopy results from [facility]. -1 unit PRBc transfusion -G/I consult (Dr. Pierce) CAD s/p stent -Continue home Aspirin 81mg PO and Plavix 75mg PO. -Cardiology consult (Dr. Torres) Hypertension -Continue Toprol Xl 50mg PO QD -Lasix 20mg PO QD Hyperlipidemia Continue Atorvasatin 80mg QHS FEN -1 unit PRBC transfusion -Will follow CMP -NPO Prophylaxis SCDs and TEDs to B/L lower extremities Disposition: Admit to medical surgical floor. Visit type - Emergency Visit Emergency Visit: Yes ED Registration Date: 03/26/18 Care time: The patient presented to the Emergency Department on the above date and was hospitalized for further evaluation of their emergent condition. - New Patient This patient is new to me today: Yes Date on this admission: 03/26/18 - Critical Care Critical Care patient: No Hospitalist Screening - Colonoscopy Questionnaire Colonoscopy Questionnaire: Colonoscopy Questionnaire - Patient: 50 - 75 years old and never had a screening colonoscopy: Unknown History of colon or rectal polyps, or CA: Unknown History of IBD, Crohn's disease or UC: Unknown History of abdominal radiation therapy as a child: Unknown - Relative: 1 with colon or rectal CA, or polyps at age 60 or younger: Unknown Colon or rectal CA diagnosed at age 45 or younger: Unknown Multiple relatives with colon or rectal CA: Unknown - Outcome: Screening Result: Negative Screen
[2018-03-26] MEDS ORDERED: METOPROLOL TARTRATE 25 MG TABLET (FP) PO ONE (03:50)
[2018-03-26] MEDS ORDERED: METOPROLOL TARTRATE 25 MG TABLET (FP) ONE (03:54)
[2018-03-26] MEDS: CLOPIDOGREL BISULFATE 75 MG TABLET (FP) PO SCH (09:03)
[2018-03-26] MEDS: ASPIRIN 81 MG CHEWABLE TABLETS PO SCH (09:03)
[2018-03-26] MEDS: FUROSEMIDE 20 MG TABLET (FP) PO SCH (09:03)
[2018-03-26] MEDS: PANTOPRAZOLE 40 MG TABLET (FP) PO SCH (09:03)
--- NOTE | 2018-03-26 09:06 | HOSP ---
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 on 01/2018 on Plavix and aspirin , was called by the roller helper office for the patient to go to hospital since blood work that was done katey low hemoglobin to be in Low 5s. As per patient, patient had an EGD and colonoscopy and underwent capsule endscopy which she does not have the result . Colonoscopy which showed hiatal hernia, and sigmoid diverticulosis , had it done at [facility]. Patient denies having any fevers, chills, shortness of breath, cough, chest pain, palpitations, abdominal pain, nausea, vomiting, diarrhea, constipation, melena, hematochezia, dysuria, hematuria. Vital Signs Temperature 98.6 F 03/26/18 01:53 Pulse Rate 94 H 03/26/18 03:51 Respiratory Rate 18 03/26/18 03:51 Blood Pressure 169/83 03/26/18 03:51 O2 Sat by Pulse Oximetry (%) 98 03/26/18 03:51 GENERAL: Patient is awake, alert, and fully oriented to person, place, and time , in no acute distress. HEAD: Normocephalic, atraumatic. EYES: Pupils equal, round and reactive to light, extraocular movements intact, sclera anicteric, conjunctiva clear, mild pallor B/L. EARS, NOSE, THROAT: Ears normal, oropharynx clear without exudates. Moist mucous membranes. NECK: Supple without lymphadenopathy, or masses. LUNGS: Good inspiratory effort. Breath sounds equal, clear to auscultation bilaterally. No wheezes, and no crackles. No accessory muscle use. HEART: Regular rate and rhythm, normal S1 and S2 with holosystolic murmur best appreciated at apex. ABDOMEN: Soft, nondistended. Nontender to light and deep palpation X4 quadrants. Normoactive bowel sounds X4 quadrants. EXTREMITIES: 2+ pulses, warm. no edema or swelling, discoid lesions on the upper lip. CBCD WBC 5.6 K/mm3 (4.0-10.0) 03/25/18 23:55 RBC 2.47 M/mm3 (3.60-5.2) L 03/25/18 23:55 Hgb 5.6 GM/dL (10.7-15.3) L* 03/25/18 23:55 Hct 18.7 % (32.4-45.2) L D 03/25/18 23:55 MCV 75.5 fl (80-96) L 03/25/18 23:55 MCHC 29.9 g/dl (32.0-36.0) L 03/25/18 23:55 RDW 19.6 % (11.6-15.6) H 03/25/18 23:55 Plt Count 304 K/MM3 (134-434) 03/25/18 23:55 MPV 8.6 fl (7.5-11.1) 03/25/18 23:55 CMP Sodium 144 mmol/L (136-145) 03/25/18 23:55 Potassium 4.4 mmol/L (3.5-5.1) 03/25/18 23:55 Chloride 109 mmol/L (98-107) H 03/25/18 23:55 Carbon Dioxide 28 mmol/L (21-32) 03/25/18 23:55 Anion Gap 7 MMOL/L (8-16) L 03/25/18 23:55 BUN 20 mg/dL (7-18) H 03/25/18 23:55 Creatinine 1.2 mg/dL (0.55-1.3) 03/25/18 23:55 Creat Clearance w eGFR 44.54 (>60) 03/25/18 23:55 Random Glucose 141 mg/dL (74-106) H 03/25/18 23:55 Calcium 8.7 mg/dL (8.5-10.1) 03/25/18 23:55 Total Bilirubin 0.3 mg/dL (0.2-1.0) 03/25/18 23:55 AST 28 U/L (15-37) 03/25/18 23:55 ALT 27 U/L (13-61) 03/25/18 23:55 Alkaline Phosphatase 103 U/L (45-117) 03/25/18 23:55 Total Protein 6.8 g/dl (6.4-8.2) 03/25/18 23:55 Albumin 3.2 g/dl (3.4-5.0) L 03/25/18 23:55 Current Medications Generic Name Dose Route Start Last Admin Trade Name Freq PRN Reason Stop Dose Admin Aspirin 81 mg 03/26/18 10:00 03/26/18 09:03 Asa - PO 81 mg DAILY SADAF Administration Atorvastatin Calcium 80 mg 03/26/18 22:00 Lipitor - PO HS SADAF Clopidogrel Bisulfate 75 mg 03/26/18 10:00 03/26/18 09:03 Plavix - PO 75 mg DAILY SADAF Administration Furosemide 20 mg 03/26/18 10:00 03/26/18 09:03 Lasix - PO 20 mg DAILY SADAF Administration Metoprolol Succinate 50 mg 03/26/18 10:00 03/26/18 09:03 Toprol Xl - PO 50 mg DAILY SADAF Administration Pantoprazole Sodium 40 mg 03/26/18 10:00 03/26/18 09:03 Protonix - PO 40 mg DAILY SADAF Administration Home Medications Medication Instructions Recorded Aspirin [ASA -] 81 mg PO DAILY 02/18/18 Atorvastatin Ca [Lipitor] 80 mg PO HS 02/18/18 Clopidogrel Bisulfate [Plavix -] 75 mg PO DAILY 02/18/18 Metoprolol Succinate [Toprol Xl] 50 mg PO DAILY 02/22/18 Furosemide [Lasix -] 20 mg PO DAILY 03/26/18 Pantoprazole Sodium [Protonix -] 40 mg PO DAILY 03/26/18 A/P: Patient is a 68 year old female with history of discoid lupus, 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 #Acute over chronic severe Microcytic anemia due to blood loss with Hb 5.6 Hct 18. MCV 75.5, Positive stool for occult blood. Source may be upper vs. lower GI bleed. Last colonoscopy last month showed diverticulosis. Will obtain capsule endoscopy results from [facility]. 2 unit PRBc transfusion, G/I consult (Dr. Pierce), or if patient stays stable can be discharged home with f/u visit to her GI. #CAD s/p stent continue Aspirin 81mg PO and Plavix 75mg PO, Cardiology consult ( Dr. Torres) appreciated , patient has a recent stent and cannot stop Plavix and aspirin, Lasix IV if positive for rales post transfusion. repeat levels in am #Hypertension: Continue Toprol Xl 50mg PO QD, Lasix 20mg PO QD #Hyperlipidemia:Continue Atorvasatin 80mg QHS DVT: SCDs and TEDs to B/L lower extremities Physical Examination Vital Signs: Vital Signs Temperature 98.6 F 03/26/18 01:53 Pulse Rate 94 H 03/26/18 03:51 Respiratory Rate 18 03/26/18 03:51 Blood Pressure 169/83 03/26/18 03:51 O2 Sat by Pulse Oximetry (%) 98 03/26/18 03:51 Labs: CBC, BMP 03/25/18 23:55 03/25/18 23:55
--- NOTE | 2018-03-26 11:19 | CON.CARD ---
Consult Consult Specialty:: Cardiology Referred by:: IM Reason for Consultation:: GI bleeding, cad - History of Present Illness Chief Complaint: sent for anemia History of Present Illness: She is a 68 yo woman with PMH of discoid lupus, CAD, recent AR/inferior wall infarct s/p cardiac catheterization on 02/07/18 with stenting of the distal RCA ( OM lesion left untouched), on ASA and Plavix since her acute AR. admitted in February for GI bleeding, and dark stools. EGD showed hiatal hernia, colonoscopy showed sigmoid divertics. Underwent outpatient capsule study at [facility]. Seen by Dr Randolph 03/25/18 had labs sent to [facility] called to ER for Hb 5. - History Source History Provided By: Patient, Medical Record - Past Medical History Cardio/Vascular: Yes: CAD, HTN, [place] Rheumatology: Yes: Lupus - Alcohol/Substance Use Hx Alcohol Use: No - Smoking History Smoking history: Former smoker Have you smoked in the past 12 months: No Aproximately how many cigarettes per day: 20 If you are a former smoker, when did you quit?: 2 weeks Home Medications - Allergies Allergies/Adverse Reactions: Allergies Allergy/AdvReac Type Severity Reaction Status Date / Time No Known Allergies Allergy Verified 03/26/18 00:13 - Home Medications Home Medications: Ambulatory Orders Aspirin [ASA -] 81 mg PO DAILY 02/18/18 Atorvastatin Ca [Lipitor] 80 mg PO HS 02/18/18 Clopidogrel Bisulfate [Plavix -] 75 mg PO DAILY 02/18/18 Metoprolol Succinate [Toprol Xl] 50 mg PO DAILY 02/22/18 Furosemide [Lasix -] 20 mg PO DAILY 03/26/18 Pantoprazole Sodium [Protonix -] 40 mg PO DAILY 03/26/18 Vital Signs: Vital Signs Temperature 98.7 F 03/26/18 10:38 Pulse Rate 96 H 03/26/18 10:38 Respiratory Rate 20 03/26/18 10:38 Blood Pressure 159/98 03/26/18 10:38 O2 Sat by Pulse Oximetry (%) 98 03/26/18 03:51 Constitutional: Yes: No Distress, Calm Eyes: Yes: Conjunctiva Clear, EOM Intact HENT: Yes: Normocephalic Neck: Yes: Trachea Midline Respiratory: Yes: CTA Bilaterally Gastrointestinal: Yes: Normal Bowel Sounds, Soft Renal/: Yes: WNL Cardiovascular: Yes: Regular Rate and Rhythm JVD: No Carotid Bruit: No PMI: Non-Displaced Heart Sounds: Yes: S1, S2 Extremities: Yes: WNL Edema: No Peripheral Pulses WNL: Yes - Other Data Labs, Other Data: CBC, BMP 03/25/18 23:55 03/25/18 23:55 INR, PTT INR 1.10 (0.83-1.09) H 03/25/18 23:55 Imaging - Results Chest X-ray: Report Reviewed EKG: Report Reviewed Assessment/Plan She is a 68 yo woman with PMH of discoid lupus, CAD, recent AR/inferior wall infarct s/p cardiac catheterization on 02/07/2018 with stenting of the distal RCA (OM lesion left untouched), on ASA and Plavix since her acute AR. admitted in February for GI bleeding, and dark stools. EGD showed hiatal hernia, colonoscopy showed sigmoid divertics. Underwent outpatient capsule study at [facility]. Seen by Dr Randolph 03/25/18 had labs sent to [facility] called to ER for Hb 5. 1. Anemia due to GI bleeding get report of capsule study if possible. Transfuse prn to HB 9-10 2. CAD-s/p RCA stenting in January Still needs dual antiplatelet therapy despite bleeding to prevent stent thrombosis for total of one year.
[2018-03-26] MEDS ORDERED: FUROSEMIDE 40 MG/4 ML INJECTABLE VIAL IVPUSH PRN (11:36)
--- NOTE | 2018-03-26 15:57 | CON.GI ---
Consult Consult Specialty:: GI Reason for Consultation:: Anemia, heme positive stools. - History of Present Illness History of Present Illness: Chart reviewed. Known to GI service from prior admissions for the same. HGB 5.6, microcytic, hypochromic, BUN 20, heme positive stools. 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 Admits the symptoms have been constant throughout the day, and palliated with rest. She was sent to ED from her PCP Dr. Randolph after a low Hb on CBC. She was admitted for low Hb one month ago, and underwent endscopy, colonoscopy which showed hiatal hernia, and sigmoid diverticulosis. She had capsule endoscopy done at [facility] after discharge. Today denies changes in vision, headache, trauma, falls, loss of consciousness, fevers, chills, shortness of breath, cough, chest pain, palpitations, abdominal pain, nausea, vomiting, diarrhea, constipation, melena, hematochezia, dysuria, hematuria. ER course was notable for: (1) Hb 5.6 (2) 1 unit PRBCs (3) +stool occult blood NAD, AAOx3. Comfortable. No gross bleeding at home. Capsule paola was done ~ 2weeks ago at [facility] advance endoscopy office # [phone]. - History Source History Provided By: Patient, Medical Record - Past Medical History Cardio/Vascular: Yes: CAD, HTN, [place] Rheumatology: Yes: Lupus - Alcohol/Substance Use Hx Alcohol Use: No - Smoking History Smoking history: Former smoker Have you smoked in the past 12 months: No Aproximately how many cigarettes per day: 20 If you are a former smoker, when did you quit?: 2 weeks Home Medications - Allergies Allergies/Adverse Reactions: Allergies Allergy/AdvReac Type Severity Reaction Status Date / Time No Known Allergies Allergy Verified 03/26/18 00:13 - Home Medications Home Medications: Ambulatory Orders Aspirin [ASA -] 81 mg PO DAILY 02/18/18 Atorvastatin Ca [Lipitor] 80 mg PO HS 02/18/18 Clopidogrel Bisulfate [Plavix -] 75 mg PO DAILY 02/18/18 Metoprolol Succinate [Toprol Xl] 50 mg PO DAILY 02/22/18 Furosemide [Lasix -] 20 mg PO DAILY 03/26/18 Pantoprazole Sodium [Protonix -] 40 mg PO DAILY 03/26/18 Family Disease History - Family Disease History Family History: Unremarkable Review of Systems Findings/Remarks: as per H&P, ED, HPI Physical Exam-GI Vital Signs: Vital Signs Temperature 99.1 F 03/26/18 13:48 Pulse Rate 81 03/26/18 13:48 Respiratory Rate 20 03/26/18 13:48 Blood Pressure 131/76 03/26/18 13:48 O2 Sat by Pulse Oximetry (%) 98 03/26/18 03:51 Constitutional: Yes: Well Nourished, No Distress, Calm Eyes: Yes: Conjunctiva Clear HENT: Yes: Atraumatic Neck: Yes: Supple Cardiovascular: Yes: Regular Rate and Rhythm Respiratory: Yes: Regular Gastrointestinal Inspection: No: Ascites, Distention ...Auscultate: Yes: Normoactive Bowel Sounds ...Palpate: Yes: Soft. No: Firm/Rigid, Guarding, Mass, Tenderness, Tenderness, Epigastium ...Rectal Exam: Yes: Guaiac Positive (per lab) Edema: No Neurological: Yes: Alert, Oriented Labs: CBC, BMP 03/25/18 23:55 03/25/18 23:55 INR, PTT INR 1.10 (0.83-1.09) H 03/25/18 23:55 CBCD WBC 5.6 K/mm3 (4.0-10.0) 03/25/18 23:55 RBC 2.47 M/mm3 (3.60-5.2) L 03/25/18 23:55 Hgb 5.6 GM/dL (10.7-15.3) L* 03/25/18 23:55 Hct 18.7 % (32.4-45.2) L D 03/25/18 23:55 MCV 75.5 fl (80-96) L 03/25/18 23:55 MCHC 29.9 g/dl (32.0-36.0) L 03/25/18 23:55 RDW 19.6 % (11.6-15.6) H 03/25/18 23:55 Plt Count 304 K/MM3 (134-434) 03/25/18 23:55 MPV 8.6 fl (7.5-11.1) 03/25/18 23:55 CMP Sodium 144 mmol/L (136-145) 03/25/18 23:55 Potassium 4.4 mmol/L (3.5-5.1) 03/25/18 23:55 Chloride 109 mmol/L (98-107) H 03/25/18 23:55 Carbon Dioxide 28 mmol/L (21-32) 03/25/18 23:55 Anion Gap 7 MMOL/L (8-16) L 03/25/18 23:55 BUN 20 mg/dL (7-18) H 03/25/18 23:55 Creatinine 1.2 mg/dL (0.55-1.3) 03/25/18 23:55 Creat Clearance w eGFR 44.54 (>60) 03/25/18 23:55 Calcium 8.7 mg/dL (8.5-10.1) 03/25/18 23:55 Total Bilirubin 0.3 mg/dL (0.2-1.0) 03/25/18 23:55 AST 28 U/L (15-37) 03/25/18 23:55 ALT 27 U/L (13-61) 03/25/18 23:55 Alkaline Phosphatase 103 U/L (45-117) 03/25/18 23:55 Total Protein 6.8 g/dl (6.4-8.2) 03/25/18 23:55 Albumin 3.2 g/dl (3.4-5.0) L 03/25/18 23:55 Imaging - Results Chest X-ray: Report Reviewed Problem List - Problems (1) Acute blood loss anemia Code(s): D62 - ACUTE POSTHEMORRHAGIC ANEMIA (2) GI (gastrointestinal hemorrhage) Code(s): K92.2 - GASTROINTESTINAL HEMORRHAGE, UNSPECIFIED Qualifiers: GI bleed type/associated pathology: unspecified gastrointestinal hemorrhage type Qualified Code(s): K92.2 - Gastrointestinal hemorrhage, unspecified Assessment/Plan A 68F with microscopic hypochromic anemia and heme positive stools while on ASA and Plavix. EGD and colonoscopy on 02/21/18 revealed mild esophagitis and colonic diverticulosis respectively. Recommend: Agree with PRBC to above 7 g/dl and PPI po Daily. Obtain Small bowel capsule endoscopy reports. Hold ASA and Plavix if safe from cardiovascular perspective. Daily CBC and close monitoring for overt GI bleeding. Diet as tolerated. No plans ofr endoscopy/colonscopy unless significant, active bleeding is suspected. Will call [facility] on Wednesday to get capsule result . Discuses with the pt and the nurse.
[2018-03-26] MEDS: ATORVASTATIN CA 80 MG TABLET (FP) PO SCH (22:06)
[2018-03-27 07:44] LABS: BASO % 0.9 % (0-2.0); EOS % 2.2 % (0-4.5); HEMATOCRIT 25.8 % (32.4-45.2); HEMOGLOBIN 8.3 GM/dL (10.7-15.3); LYMPH % 37.9 % (8-40); MCH 24.5 pg (25.7-33.7); MCHC 32.1 g/dl (32.0-36.0); MEAN CELL VOLUME 76.2 fl (80-96); MEAN PLT VOLUME 8.4 fl (7.5-11.1); MONO % 16.2 % (3.8-10.2); NEUT % 42.8 % (42.8-82.8); PLATELET COUNT 244 K/MM3 (134-434); RBC 3.38 M/mm3 (3.60-5.2); RDW 18.3 % (11.6-15.6); WHITE BLOOD COUNT 5.4 K/mm3 (4.0-10.0)
[2018-03-27 08:29] LABS: ALBUMIN 2.9 g/dl (3.4-5.0); ANION GAP 9 MMOL/L (8-16); BILIRUBIN,TOTAL 1.3 mg/dL (0.2-1.0); BLOOD UREA NITROGEN 16 mg/dL (7-18); CALCIUM 8.6 mg/dL (8.5-10.1); CHLORIDE 107 mmol/L (98-107); CO2 27 mmol/L (21-32); CREATININE 0.9 mg/dL (0.55-1.3); GLUCOSE,RANDOM 92 mg/dL (74-106); MAGNESIUM 2.2 mg/dL (1.8-2.4); PHOSPHOROUS 3.7 mg/dL (2.5-4.9); POTASSIUM 4.2 mmol/L (3.5-5.1); SGOT/AST 24 U/L (15-37); SGPT/ALT 25 U/L (13-61); SODIUM 143 mmol/L (136-145); TOT PROT 5.9 g/dl (6.4-8.2)
[2018-03-27 08:30] LABS: ALK PHOS 80 U/L (45-117)
[2018-03-27] MEDS: ASPIRIN 81 MG CHEWABLE TABLETS PO SCH (09:02)
[2018-03-27] MEDS: FUROSEMIDE 20 MG TABLET (FP) PO SCH (09:02)
[2018-03-27] MEDS: CLOPIDOGREL BISULFATE 75 MG TABLET (FP) PO SCH (09:02)
[2018-03-27] MEDS: PANTOPRAZOLE 40 MG TABLET (FP) PO SCH (09:03)
--- NOTE | 2018-03-27 10:36 | PN ---
Physical Exam: SUBJECTIVE: Patient seen and examined. Endorses symptomatic improvement. No acute complaints. OBJECTIVE: Vital Signs Period Temp Pulse Resp BP Sys/Blankenship Pulse Ox Last 24 Hr 97.7 F-99.1 F 75-96 16-20 125-159/72-98 98 GENERAL: A&Ox3, NAD HEAD: NC/AT EYES: PERRLA, EOMI ENT: lupus lesion over maxillary surface, MMM NECK: Trachea midline, full range of motion, supple LUNGS: CTA b/l HEART: RRR no m/r/g ABDOMEN: +bs, soft, NT, ND EXTREMITIES: 2+ pulses, warm, well-perfused, no edema. NEUROLOGICAL: No focal deficit, gait not observed PSYCH: Normal mood, normal affect. SKIN: Warm, dry, normal turgor, no rashes or lesions noted Laboratory Results - last 24 hr 03/25/18 03/27/18 03/27/18 23:55 07:16 07:16 WBC 5.4 RBC 3.38 L Hgb 8.3 L Hct 25.8 L D MCV 76.2 L MCH 24.5 L MCHC 32.1 RDW 18.3 H Plt Count 244 MPV 8.4 Absolute Neuts (auto) 2.3 Neutrophils % 42.8 D Lymphocytes % 37.9 D Monocytes % 16.2 H Eosinophils % 2.2 D Basophils % 0.9 Nucleated RBC % 0 Sodium 143 Potassium 4.2 Chloride 107 Carbon Dioxide 27 Anion Gap 9 BUN 16 Creatinine 0.9 Creat Clearance w eGFR > 60 Random Glucose 92 Calcium 8.6 Phosphorus 3.7 Magnesium 2.2 Total Bilirubin 1.3 H AST 24 ALT 25 Alkaline Phosphatase 80 Total Protein 5.9 L Albumin 2.9 L Blood Type O POSITIVE Antibody Screen Positive H Antibody Identification Anti-E Antigen Identification K Antigen - NEGATIVE Crossmatch See Detail Active Medications Generic Name Dose Route Start Last Admin Trade Name Freq PRN Reason Stop Dose Admin Aspirin 81 mg 03/26/18 10:03/27/18 09:02 Asa - PO 81 mg DAILY SADAF Administration Atorvastatin Calcium 80 mg 03/26/18 22:00 03/26/18 22:06 Lipitor - PO 80 mg HS SADAF Administration Clopidogrel Bisulfate 75 mg 03/26/18 10:03/27/18 09:02 Plavix - PO 75 mg DAILY SADAF Administration Furosemide 20 mg 03/26/18 10:00 03/27/18 09:02 Lasix - PO 20 mg DAILY SADAF Administration Furosemide 20 mg 03/26/18 11:36 Lasix Injection - IVPUSH ONCE PRN congestion Metoprolol Succinate 50 mg 03/26/18 10:00 03/27/18 09:02 Toprol Xl - PO 50 mg DAILY SADAF Administration Pantoprazole Sodium 40 mg 03/26/18 10:00 03/27/18 09:03 Protonix - PO 40 mg DAILY SADAF Administration ASSESSMENT/PLAN: 68 y/o F w/ PMHx of discoid lupus, 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 MCV 75.5 -s/p 1 unit PRBC, Hb 8.3 this AM -now hyperbilirubinemic (1.3), obtaining fractionation -Positive stool for occult blood. Source may be upper vs. lower GI bleed -EGD/colonoscopy 02/21/18: mild esophagitis and diverticulosis -Will call [facility] on Wednesday to get capsule endoscopy result: -G/I consult (Dr. Pierce) -no plan for repeat scope unless significant actively bleeding #CAD s/p stent -Continue home Aspirin 81mg PO and Plavix 75mg PO. -Cardiology consult (Lyndon londono following) #HTN -Continue Toprol Xl 50mg PO QD -Lasix 20mg PO QD #HLD -Continue Atorvasatin 80mg QHS #FEN -no IVF -trending CMP -fat/sodium controlled diet #PPx -DVT: TEDs -GI: Protonix 40 PO #Dispo -med-surg Visit type - Emergency Visit Emergency Visit: No - New Patient This patient is new to me today: Yes Date on this admission: 03/27/18 - Critical Care Critical Care patient: No
[2018-03-27 10:58] LABS: BILIRUBIN,DIRECT 0.4 mg/dL (0.0-0.2)
--- NOTE | 2018-03-27 11:47 | PN ---
Progress Note, Physician Chief Complaint: feeling well History of Present Illness: She is a 68 yo woman with PMH of discoid lupus, CAD, recent ME/inferior wall infarct s/p cardiac catheterization on 02/07/18 with stenting of the distal RCA ( OM lesion left untouched), on ASA and Plavix since her acute ME. admitted in February for GI bleeding, and dark stools. EGD showed hiatal hernia, colonoscopy showed sigmoid divertics. Underwent outpatient capsule study at [facility]. Seen by Dr Randolph 03/25/18 had labs sent to [facility] called to ER for Hb 5. Given blood transfusion without complications. - Current Medication List Current Medications: Active Medications Aspirin (Asa -) 81 mg PO DAILY [facility] Last Admin: 03/27/18 09:02 Dose: 81 mg Atorvastatin Calcium (Lipitor -) 80 mg PO HS [facility] Last Admin: 03/26/18 22:06 Dose: 80 mg Clopidogrel Bisulfate (Plavix -) 75 mg PO DAILY [facility] Last Admin: 03/27/18 09:02 Dose: 75 mg Furosemide (Lasix -) 20 mg PO DAILY [facility] Last Admin: 03/27/18 09:02 Dose: 20 mg Furosemide (Lasix Injection -) 20 mg IVPUSH ONCE PRN PRN Reason: congestion Metoprolol Succinate (Toprol Xl -) 50 mg PO DAILY [facility] Last Admin: 03/27/18 09:02 Dose: 50 mg Pantoprazole Sodium (Protonix -) 40 mg PO DAILY [facility] Last Admin: 03/27/18 09:03 Dose: 40 mg - Objective Vital Signs: Vital Signs Temperature 97.7 F 03/27/18 08:00 Pulse Rate 75 03/27/18 08:00 Respiratory Rate 16 03/27/18 08:00 Blood Pressure 151/75 03/27/18 08:00 O2 Sat by Pulse Oximetry (%) 98 03/26/18 21:00 Constitutional: Yes: No Distress, Calm Eyes: Yes: Conjunctiva Clear, EOM Intact HENT: Yes: Atraumatic, Normocephalic Neck: Yes: Supple, Trachea Midline Cardiovascular: Yes: Regular Rate and Rhythm Respiratory: Yes: CTA Bilaterally Musculoskeletal: Yes: WNL Extremities: Yes: WNL Edema: No Peripheral Pulses WNL: Yes Labs: CBC, BMP 03/27/18 07:16 03/27/18 07:16 INR, PTT INR 1.10 (0.83-1.09) H 03/25/18 23:55 Assessment/Plan She is a 68 yo woman with PMH of discoid lupus, CAD, recent ME/inferior wall infarct s/p cardiac catheterization on 02/07/2018 with stenting of the distal RCA (OM lesion left untouched), on ASA and Plavix since her acute ME. admitted in February for GI bleeding, and dark stools. EGD showed hiatal hernia, colonoscopy showed sigmoid divertics. Underwent outpatient capsule study at [facility]. Seen by Dr Randolph 03/25/18 had labs sent to [facility] called to ER for Hb 5. 1. Anemia due to GI bleeding get report of capsule study if possible. Transfuse prn to HB 9-10 2. CAD-s/p RCA stenting in January Still needs dual antiplatelet therapy despite bleeding to prevent stent thrombosis for total of one year.
--- NOTE | 2018-03-27 14:08 | PN ---
Teaching Attending Note Name of Resident: Roberto Cerna ATTENDING PHYSICIAN STATEMENT I saw and evaluated the patient. I reviewed the resident's note and discussed the case with the resident. I agree with the resident's findings and plan as documented. SUBJECTIVE: Patient is comfortable with no acute distress. OBJECTIVE: Vital Signs Temperature 97.9 F 03/27/18 13:29 Pulse Rate 75 03/27/18 13:29 Respiratory Rate 20 03/27/18 13:29 Blood Pressure 140/66 03/27/18 13:29 O2 Sat by Pulse Oximetry (%) 98 03/27/18 09:00 CBCD WBC 5.4 K/mm3 (4.0-10.0) 03/27/18 07:16 RBC 3.38 M/mm3 (3.60-5.2) L 03/27/18 07:16 Hgb 8.3 GM/dL (10.7-15.3) L 03/27/18 07:16 Hct 25.8 % (32.4-45.2) L D 03/27/18 07:16 MCV 76.2 fl (80-96) L 03/27/18 07:16 MCHC 32.1 g/dl (32.0-36.0) 03/27/18 07:16 RDW 18.3 % (11.6-15.6) H 03/27/18 07:16 Plt Count 244 K/MM3 (134-434) 03/27/18 07:16 MPV 8.4 fl (7.5-11.1) 03/27/18 07:16 CMP Sodium 143 mmol/L (136-145) 03/27/18 07:16 Potassium 4.2 mmol/L (3.5-5.1) 03/27/18 07:16 Chloride 107 mmol/L (98-107) 03/27/18 07:16 Carbon Dioxide 27 mmol/L (21-32) 03/27/18 07:16 Anion Gap 9 MMOL/L (8-16) 03/27/18 07:16 BUN 16 mg/dL (7-18) 03/27/18 07:16 Creatinine 0.9 mg/dL (0.55-1.3) 03/27/18 07:16 Creat Clearance w eGFR > 60 (>60) 03/27/18 07:16 Random Glucose 92 mg/dL (74-106) 03/27/18 07:16 Calcium 8.6 mg/dL (8.5-10.1) 03/27/18 07:16 Total Bilirubin 1.3 mg/dL (0.2-1.0) H 03/27/18 07:16 AST 24 U/L (15-37) 03/27/18 07:16 ALT 25 U/L (13-61) 03/27/18 07:16 Alkaline Phosphatase 80 U/L (45-117) 03/27/18 07:16 Total Protein 5.9 g/dl (6.4-8.2) L 03/27/18 07:16 Albumin 2.9 g/dl (3.4-5.0) L 03/27/18 07:16 Current Medications Generic Name Dose Route Start Last Admin Trade Name Freq PRN Reason Stop Dose Admin Aspirin 81 mg 03/26/18 10:00 03/27/18 09:02 Asa - PO 81 mg DAILY SADAF Administration Atorvastatin Calcium 80 mg 03/26/18 22:00 03/26/18 22:06 Lipitor - PO 80 mg HS SADAF Administration Clopidogrel Bisulfate 75 mg 03/26/18 10:00 03/27/18 09:02 Plavix - PO 75 mg DAILY SADAF Administration Furosemide 20 mg 03/26/18 10:00 03/27/18 09:02 Lasix - PO 20 mg DAILY SADAF Administration Furosemide 20 mg 03/26/18 11:36 Lasix Injection - IVPUSH ONCE PRN congestion Metoprolol Succinate 50 mg 03/26/18 10:00 03/27/18 09:02 Toprol Xl - PO 50 mg DAILY SADAF Administration Pantoprazole Sodium 40 mg 03/26/18 10:00 03/27/18 09:03 Protonix - PO 40 mg DAILY SADAF Administration Home Medications Medication Instructions Recorded Aspirin [ASA -] 81 mg PO DAILY 02/18/18 Atorvastatin Ca [Lipitor] 80 mg PO HS 02/18/18 Clopidogrel Bisulfate [Plavix -] 75 mg PO DAILY 02/18/18 Metoprolol Succinate [Toprol Xl] 50 mg PO DAILY 02/22/18 Furosemide [Lasix -] 20 mg PO DAILY 03/26/18 Pantoprazole Sodium [Protonix -] 40 mg PO DAILY 03/26/18 PE: per resident's note ASSESSMENT AND PLAN: Patient is a 68 year old female with history of discoid lupus, inferior [place] s/p stent 01/2018, presents with complaint of lightheadedness, generalize malaise and weakness for the past month. #Acute over chronic severe Microcytic anemia due to blood loss with Hb 5.6 Hct 18. MCV 75.5-->8.3 today s/p transfusion x 2 units , Positive stool for occult blood. Source may be upper vs. lower GI bleed. Last colonoscopy last month showed diverticulosis. Will obtain capsule endoscopy results from [facility]. 2 unit PRBc transfusion, G/I consult (Dr. Pierce), or if patient stays stable can be discharged home with f/u visit to her GI. #CAD s/p stent continue Aspirin 81mg PO and Plavix 75mg PO, Cardiology consult ( Dr. Torres) appreciated , patient has a recent stent and cannot stop Plavix and aspirin. repeat levels in am #Hypertension: Continue Toprol Xl 50mg PO QD, Lasix 20mg PO QD #Hyperlipidemia:Continue Atorvasatin 80mg QHS DVT: SCDs and TEDs to B/L lower extremities obtain capsule endoscopy result.
--- NOTE | 2018-03-27 16:46 | PN ---
Progress Note (short form) - Note Progress Note: HGB 8.3 g/dl from 5.8 after 2 u of PRBC yesterday. No events. Feels better. Will call C in am for SBCE results. Continue current care. Problem List - Problems (1) Acute blood loss anemia Code(s): D62 - ACUTE POSTHEMORRHAGIC ANEMIA (2) GI (gastrointestinal hemorrhage) Code(s): K92.2 - GASTROINTESTINAL HEMORRHAGE, UNSPECIFIED Qualifiers: GI bleed type/associated pathology: unspecified gastrointestinal hemorrhage type Qualified Code(s): K92.2 - Gastrointestinal hemorrhage, unspecified
[2018-03-27] MEDS: ATORVASTATIN CA 80 MG TABLET (FP) PO SCH (21:19)
--- NOTE | 2018-03-27 21:49 | EKG ---
Test Reason : Blood Pressure : / mmHG Vent. Rate : 094 BPM Atrial Rate : 094 BPM P-R Int : 132 ms QRS Dur : 092 ms QT Int : 382 ms P-R-T Axes : 056 017 -41 degrees QTc Int : 477 ms NORMAL SINUS RHYTHM POSSIBLE LEFT ATRIAL ENLARGEMENT INFERIOR INFARCT (CITED ON OR BEFORE 05-FEB-2018) ANTERIOR INFARCT (CITED ON OR BEFORE 05-FEB-2018) T WAVE ABNORMALITY, CONSIDER LATERAL ISCHEMIA ABNORMAL ECG WHEN COMPARED WITH ECG OF 19-FEB-2018 15:54, NO SIGNIFICANT CHANGE WAS FOUND Confirmed by TONYA MUNOZ MD ([id number]) on 03/27/2018 9:48:54 PM Referred By: Confirmed By:TONYA MUNOZ MD
[2018-03-28 07:07] LABS: BASO % 0.8 % (0-2.0); EOS % 2.3 % (0-4.5); HEMATOCRIT 25.6 % (32.4-45.2); HEMOGLOBIN 8.1 GM/dL (10.7-15.3); LYMPH % 37.8 % (8-40); MCH 24.3 pg (25.7-33.7); MCHC 31.8 g/dl (32.0-36.0); MEAN CELL VOLUME 76.3 fl (80-96); MEAN PLT VOLUME 8.7 fl (7.5-11.1); MONO % 14.8 % (3.8-10.2); NEUT % 44.3 % (42.8-82.8); PLATELET COUNT 245 K/MM3 (134-434); RBC 3.35 M/mm3 (3.60-5.2); RDW 18.8 % (11.6-15.6); RETICULOCYTES 4.71 % (0.5-1.5); WHITE BLOOD COUNT 5.5 K/mm3 (4.0-10.0)
[2018-03-28 07:38] LABS: ALBUMIN 2.8 g/dl (3.4-5.0); ALK PHOS 85 U/L (45-117); ANION GAP 8 MMOL/L (8-16); BILIRUBIN,DIRECT 0.3 mg/dL (0.0-0.2); BLOOD UREA NITROGEN 17 mg/dL (7-18); CALCIUM 8.5 mg/dL (8.5-10.1); CHLORIDE 109 mmol/L (98-107); CO2 27 mmol/L (21-32); CREATININE 0.9 mg/dL (0.55-1.3); GLUCOSE,RANDOM 89 mg/dL (74-106); LDH 156 U/L (84-246); MAGNESIUM 2.3 mg/dL (1.8-2.4); POTASSIUM 4.2 mmol/L (3.5-5.1); SGOT/AST 24 U/L (15-37); SGPT/ALT 24 U/L (13-61); SODIUM 144 mmol/L (136-145); TOT PROT 5.8 g/dl (6.4-8.2)
[2018-03-28 08:23] LABS: PLATELET ESTIMATE ADEQUATE
[2018-03-28] MEDS: PANTOPRAZOLE 40 MG TABLET (FP) PO SCH (09:17)
[2018-03-28] MEDS: CLOPIDOGREL BISULFATE 75 MG TABLET (FP) PO SCH (09:17)
[2018-03-28] MEDS: ASPIRIN 81 MG CHEWABLE TABLETS PO SCH (09:17)
[2018-03-28] MEDS: FUROSEMIDE 20 MG TABLET (FP) PO SCH (09:17)
--- NOTE | 2018-03-28 11:46 | PN ---
Progress Note (short form) - Note Progress Note: Case discussed with Primary team. Capsule endoscopy results noted. For push enteroscopy/balloon enteroscopy at [facility]. Problem List - Problems (1) Acute blood loss anemia Code(s): D62 - ACUTE POSTHEMORRHAGIC ANEMIA (2) GI (gastrointestinal hemorrhage) Code(s): K92.2 - GASTROINTESTINAL HEMORRHAGE, UNSPECIFIED Qualifiers: GI bleed type/associated pathology: unspecified gastrointestinal hemorrhage type Qualified Code(s): K92.2 - Gastrointestinal hemorrhage, unspecified
--- NOTE | 2018-03-28 13:58 | DS ---
Physical Exam: SUBJECTIVE: Patient seen and examined. Endorses symptomatic improvement. No acute complaints. OBJECTIVE: Vital Signs Period Temp Pulse Resp BP Sys/Blankenship Pulse Ox Last 24 Hr 98.4 F-98.8 F 69-87 20-20 130-159/67-93 98-100 PHYSICAL EXAM GENERAL: A&Ox3, NAD HEAD: NC/AT EYES: PERRLA, EOMI ENT: lupus lesion over maxillary surface, MMM NECK: Trachea midline, full range of motion, supple LUNGS: CTA b/l HEART: RRR no m/r/g ABDOMEN: +bs, soft, NT, ND EXTREMITIES: 2+ pulses, warm, well-perfused, no edema. NEUROLOGICAL: No focal deficit, gait not observed PSYCH: Normal mood, normal affect. SKIN: Warm, dry, normal turgor, no rashes or lesions noted LABS Laboratory Results - last 24 hr 03/28/18 03/28/18 06:10 06:10 WBC 5.5 RBC 3.35 L Hgb 8.1 L Hct 25.6 L MCV 76.3 L MCH 24.3 L MCHC 31.8 L RDW 18.8 H Plt Count 245 MPV 8.7 Absolute Neuts (auto) 2.5 Neutrophils % 44.3 Lymphocytes % 37.8 Monocytes % 14.8 H Eosinophils % 2.3 Basophils % 0.8 Nucleated RBC % 0 Platelet Estimate Adequate Platelet Comment No clumping noted Retic Count 4.71 H Sodium 144 Potassium 4.2 Chloride 109 H Carbon Dioxide 27 Anion Gap 8 BUN 17 Creatinine 0.9 Creat Clearance w eGFR > 60 Random Glucose 89 Calcium 8.5 Phosphorus 4.0 Magnesium 2.3 Total Bilirubin 1.0 Direct Bilirubin 0.3 H AST 24 ALT 24 Alkaline Phosphatase 85 LD Total 156 Total Protein 5.8 L Albumin 2.8 L HOSPITAL COURSE: Date of Admission:03/26/18 Patient is a 68 y/o F w/ PMHx discoid lupus, inferior [place] s/p stent at [facility] 01/2018, p/w 1 month h/o lightheadedness, generalized malaise, and weakness. Was admitted for low Hb one month ago, and underwent endscopy, colonoscopy which showed hiatal hernia, and sigmoid diverticulosis. She had capsule endoscopy done at [facility] after discharge. Hb on admission 5.6, FOBT positive, CXR benign, admitted for anemia/bleeding w/u. Cardiology and GI consulted. Cardiology recommended continuation of ASA/Plavix d/t recent stenting despite evidence of bleed. Transfused 2 units PRBC, Hb improved to 8.3 and remained stable. Symptoms resolved. Records of capsule endoscopy at [facility] obtained and placed in chart, indicated multiple small bowel AVMs. Patient discharged for previously scheduled followup at [facility] on Wednesday push enteroscopy/ balloon enteroscopy. Further f/u scheduled with GI, PCP, cardiology. Importance of staying on ASA/Plavix and return to [facility] for intervention. Date of Discharge: 03/28/18 Minutes to complete discharge: 40 Discharge Summary Reason For Visit: GASTROINTESTINAL HEMORRHAGE;ANEMIA DUE TO ACUTE Current Active Problems Acute blood loss anemia (Acute) GI (gastrointestinal hemorrhage) (Acute) Condition: Stable - Instructions Diet, Activity, Other Instructions: You were hospitalized due to anemia. You were transfused two units of blood and your blood count remained stable. Records of your capsule endoscopy showed that you have bleeding from vessels in the intestine, which will require follow up intervention from the provider you saw at [facility]. You were also evaluated by cardiology, and it was determined that you need to remain on aspirin and Plavix for your stents. Referrals You have an appointment with Dr. Luz Maria Mchugh ([phone]) for follow up this 04/01/18. If you experience any bleeding or other new symptoms prior to your follow up appointment with Dr. Mchugh, please go to the [facility] Emergency Department immediately. A referral has also been made to Dr. Galileo Herrera, who evaluated your capsule endoscopy. Please call the number provided to follow up. A referral has also been made to Dr. Luciano Pierce for long-term follow up with gastroenterology. Please keep your appointment with him within one month of discharge. A cardiology follow up appointment has also been made on your behalf to Dr. Stevie Haney. Please keep that appointment for one month after discharge. You have also been referred to our clinic for primary care followup within one week of discharge. Medical recommendations Please resume your home medications as prescribed. If you experience any bleeding or other new symptoms prior to your follow up appointment with Dr. Mchugh, please go to the [facility] Emergency Department immediately. Referrals: Galileo Herrera [Other] - 1 Week [facility] [place] [facility] [Provider Group] - 1 Week Stevie Haney MD [Staff Physician] - 1 Month Luciano Pierce MD [Staff Physician] - 1 Month Luz Maria West MD, FACP, FACG [Staff Physician] - 1 Week () Disposition: HOME - Home Medications Comprehensive Discharge Medication List: Ambulatory Orders Aspirin [ASA -] 81 mg PO DAILY 02/18/18 Atorvastatin Ca [Lipitor] 80 mg PO HS 02/18/18 Clopidogrel Bisulfate [Plavix -] 75 mg PO DAILY 02/18/18 Metoprolol Succinate [Toprol Xl] 50 mg PO DAILY 02/22/18 Furosemide [Lasix -] 20 mg PO DAILY 03/26/18 Pantoprazole Sodium [Protonix -] 40 mg PO DAILY 03/26/18 This patient is new to me today: No Emergency Visit: No Critical Care patient: No - Discharge Referral Referred to [facility] Med P.C.: No
[2018-03-28 14:17] VITALS: BP 176/97; PULSE 91; TEMP 98.1
[2018-03-28] MEDS ORDERED: amLODIPine BESYLATE 5 MG TABLET (FP) PO ONE (14:42)
--- NOTE | 2018-03-28 16:55 | PN ---
Teaching Attending Note Name of Resident: Roberto Cerna ATTENDING PHYSICIAN STATEMENT I saw and evaluated the patient. I reviewed the resident's note and discussed the case with the resident. I agree with the resident's findings and plan as documented. SUBJECTIVE: Patient is feeling better , no weakness, feels better with no acute distress. OBJECTIVE: Vital Signs Temperature 98.1 F 03/28/18 14:16 Pulse Rate 91 H 03/28/18 14:16 Respiratory Rate 20 03/28/18 14:16 Blood Pressure 176/97 03/28/18 14:16 O2 Sat by Pulse Oximetry (%) 100 03/28/18 09:00 GENERAL: A&Ox3, NAD HEAD: NC/AT EYES: PERRLA, EOMI ENT: discoid lupus lesions over maxillary surface, MMM NECK: supple, no JVD, full range of motion, LUNGS: CTA b/l HEART: RRR , S1S2 positive, no rales ABDOMEN: soft, NT, ND, positive for BS EXTREMITIES: 2+ pulses, warm, well-perfused, no edema. NEUROLOGICAL: No focal deficit, gait is steady PSYCH: Normal mood, normal affect. SKIN: Warm, dry, normal turgor, no rashes or lesions noted CBCD WBC 5.5 K/mm3 (4.0-10.0) 03/28/18 06:10 RBC 3.35 M/mm3 (3.60-5.2) L 03/28/18 06:10 Hgb 8.1 GM/dL (10.7-15.3) L 03/28/18 06:10 Hct 25.6 % (32.4-45.2) L 03/28/18 06:10 MCV 76.3 fl (80-96) L 03/28/18 06:10 MCHC 31.8 g/dl (32.0-36.0) L 03/28/18 06:10 RDW 18.8 % (11.6-15.6) H 03/28/18 06:10 Plt Count 245 K/MM3 (134-434) 03/28/18 06:10 MPV 8.7 fl (7.5-11.1) 03/28/18 06:10 CMP Sodium 144 mmol/L (136-145) 03/28/18 06:10 Potassium 4.2 mmol/L (3.5-5.1) 03/28/18 06:10 Chloride 109 mmol/L (98-107) H 03/28/18 06:10 Carbon Dioxide 27 mmol/L (21-32) 03/28/18 06:10 Anion Gap 8 MMOL/L (8-16) 03/28/18 06:10 BUN 17 mg/dL (7-18) 03/28/18 06:10 Creatinine 0.9 mg/dL (0.55-1.3) 03/28/18 06:10 Creat Clearance w eGFR > 60 (>60) 03/28/18 06:10 Random Glucose 89 mg/dL (74-106) 03/28/18 06:10 Calcium 8.5 mg/dL (8.5-10.1) 03/28/18 06:10 Total Bilirubin 1.0 mg/dL (0.2-1.0) 03/28/18 06:10 AST 24 U/L (15-37) 03/28/18 06:10 ALT 24 U/L (13-61) 03/28/18 06:10 Alkaline Phosphatase 85 U/L (45-117) 03/28/18 06:10 Total Protein 5.8 g/dl (6.4-8.2) L 03/28/18 06:10 Albumin 2.8 g/dl (3.4-5.0) L 03/28/18 06:10 Home Medications Medication Instructions Recorded Aspirin [ASA -] 81 mg PO DAILY 02/18/18 Atorvastatin Ca [Lipitor] 80 mg PO HS 02/18/18 Clopidogrel Bisulfate [Plavix -] 75 mg PO DAILY 02/18/18 Metoprolol Succinate [Toprol Xl] 50 mg PO DAILY 02/22/18 Furosemide [Lasix -] 20 mg PO DAILY 03/26/18 Pantoprazole Sodium [Protonix -] 40 mg PO DAILY 03/26/18 Amlodipine Besylate [Norvasc -] 5 mg PO DAILY #30 tablet 03/28/18 ASSESSMENT AND PLAN: Patient is a 68 year old female with history of discoid lupus, inferior [place] s/p stent 01/2018, presents with complaint of lightheadedness, generalize malaise and weakness for the past month. #Acute over chronic severe Microcytic anemia due to blood loss with Hb 5.6 Hct 18. MCV 75.5-->8.3-->8.1 today s/p transfusion x 2 units , Positive stool for occult blood. Obtained capsule endoscopy results from [facility]. Discussed with Dr. Luz Maria Mchugh ; Findings: Red spot in the distal Esophagus, stomach is normal, AVM in the duodenal bulb ,not bleeding, fresh blood in small bowel clustered at around 7% proximal small bowel and 13-17%,the bowel was adain normal until approx.86% of the small bowel was entered where ther was fresh blood. 87% appeared AVM with blood nearby.red spot with oozing at 90%, there was black liquid stool obscuring part of the bowel wall. Discussed with Dr.Schorr farrar ,patient has an appointment with her this coming Wednesday for follow up w/u. G/I consult (Dr. Pierce) appreciated . #CAD s/p stent continue Aspirin 81mg PO and Plavix 75mg PO, Cardiology consult ( Dr. Torres) appreciated , patient has a recent stent and cannot stop Plavix and aspirin. #Hypertension Uncontrolled : Continue Toprol Xl 50mg PO QD, Lasix 20mg PO QD, added Norvasc 5mg today since blood pressure was in a high side. #Hyperlipidemia:Continue Atorvasatin 80mg QHS
== END 2018-03-28 15:04 | disposition home or self-care (01) | DRG 300 ==
LOC: JER 22:50 → JERBED 03-26 01:53 → J6S 03-26 05:23
PROVIDERS: ADMIT Internal Medicine; ATTEND Internal Medicine
PROC: 30233N1 Transfusion of Nonautologous Red Blood Cells into Peripheral Vein, Percutaneous Approach (ICD-10-PCS; principal; 2018-03-26)
DX: Q27.33 Arteriovenous malformation of digestive system vessel (principal); D62 Acute posthemorrhagic anemia; I10 Essential (primary) hypertension; L93.0 Discoid lupus erythematosus; I25.10 Atherosclerotic heart disease of native coronary artery without angina pectoris; I25.2 Old myocardial infarction; Z95.5 Presence of coronary angioplasty implant and graft; Z87.891 Personal history of nicotine dependence; K44.9 Diaphragmatic hernia without obstruction or gangrene; K57.30 Diverticulosis of large intestine without perforation or abscess without bleeding; E78.5 Hyperlipidemia, unspecified
CPT/HCPCS: 36415; 36430; 71045-TC-FY; 80053; 82248; 82272; 83010; 83615; 83735; 84100; 85025; 85044; 85610; 86850; 86870; 86900; 86901; 86902; 86922; 93005; 93010; 99284-25; P9038; P9058